=== PATIENT | female | born 1950 | race Caucasian/White ===

== ENCOUNTER 2022-06-17 14:00 | Outpatient (CLI) | payer MEDICARE, SELFPAY ==
[2022-06-17 17:39] LABS: Vitamin D 25 Hydroxy* 21 ng/mL (30-80)
[2022-06-17 17:52] LABS: TSH With Reflex to FT4* 0.979 uIU/mL (0.270-4.200)
[2022-06-17 18:22] LABS: Chloride* 107 mmol/L (96-114)
[2022-06-17 18:23] LABS: Potassium* 4.4 mmol/L (3.6-5.1); Sodium* 142 mmol/L (135-149)
[2022-06-17 18:25] LABS: Cholesterol* 201 mg/dL (90-199); Creatinine* 1.5 mg/dL (0.5-1.5); Estimated Glomerular Filt Rate 36 ml/min
[2022-06-17 18:26] LABS: Blood Urea Nitrogen* 16 mg/dL (7-30); Calcium* 10.3 mg/dL (8.4-10.6); Carbon Dioxide* 26 mmol/L (20-32); Glucose* 93 mg/dL (60-115); HDL Cholesterol* 62 mg/dL (>=50); LDL Cholesterol Calculated 87 mg/dL (<100); Triglycerides* 262 mg/dL (40-149)
== END 2022-06-17 14:01 | disposition home or self-care (01) ==
PROVIDERS: PCP Internal Medicine; Visit Provider Internal Medicine
DX: E03.9 Hypothyroidism, unspecified; E78.5 Hyperlipidemia, unspecified; M81.0 Age-related osteoporosis without current pathological fracture
CPT/HCPCS: 80048; 80061; 82306; 84443

== ENCOUNTER 2022-07-05 15:56 | Outpatient (CLI) | payer MEDICARE, OTHER, SELFPAY ==
[2022-07-06 14:41] LABS: Total Volume 24 Hour Urine 950 ml
[2024-03-07 15:31] LABS: Collection Time Urine 24 Hours; Urine Creatinine mg/24 Hour 1121 mg/Day
== END 2022-07-05 15:57 | disposition home or self-care (01) ==
PROVIDERS: PCP Internal Medicine; Visit Provider Internal Medicine
DX: M81.0 Age-related osteoporosis without current pathological fracture (principal)
CPT/HCPCS: 82570

== ENCOUNTER 2022-09-22 12:45 | Outpatient (RCR) | payer MEDICARE, OTHER, SELFPAY ==
--- NOTE | 2022-08-04 14:07 | PT.OPEX ---
PT [place] Outpatient Eval PT [facility] Outpatient Eval Start: 08/04/22 13:44 Freq: Status: Active Protocol: Document 08/04/22 13:45 ACW (Rec: 08/04/22 14:07 ACW [id number]) E-signed By Sydnee Durán, PT, ATC Physical Therapy Outpatient Evaluation Insurance Information Insurance Name Medicare B Medical Diagnosis chronic neck and right shoulder pain Treating Diagnosis pain and muscle guarding in neck and upper shoulder muscles Referring MD Lutz Subjective Pain Comments Date of Last Physician Visit 06/17/22 Current Work Status Retired Preferred Name Nina Precautions Weight Bearing Status Full Weight Bearing Therapy Limitations/Systems Review Not Limited Assessment Assessment/Impression pt is a 72 yo woman with chronic right neck and shoulder muscle pain. This started the beginning of May when she was cleaning a wall of windows in her condo. She broke it up into 2 days and went slowly, but nonetheless she had increased pain afterward. She also has her sister staying with her who is wheelchair bound and Nina takes her to many appts . This requires her to lift the wheelchair into the car a minimum of 2 times, and often 4 times per day. This aggravates her neck as well. Occasionally she has referred pain up the back of her neck to the top of her head. pt had a fusion on the right side of her neck in 2011. Since this happened until now she has had 4-6 chiropractic appts which helped and when traveling over the holidays she had less pain because she wasn't lifting anything. She has most pain with forward flexion and abduction of her arm. pt rates her pain at 2- /10. She feels it like a deep ache that can run then run down the outside of her upper arm to the back of her wrist. pt has full ROM of her shoulder . Her neck mobility is limited especially in sidebending bilaterally . pt has intense muscle guarding of her right upper trap, levator scap, SCM, suboccipital muscle and moderate guarding of her deltoid and bicep muscles. pt will benefit from skilled PT of MT and TE for stretching and ultimately strengthening of her upper back and arm muscles Plan of Care Rehabilitation Potential Good Physical Therapy Goals 1. pt will be competent and compliant with home exercises 2. in 4 visits pt will be able to flex and abduction her shoulder to > 150 degrees with 2/10 max right neck/ shoulder pain. 3. in 6 visits pt will be able to lift a plate into an upper cupboard 10 times with 2 /10 max right neck and shoulder pain Coordination/Communication With Referral Source Treatment Plan/Direct Interventions Manual Therapy,Therapeutic Exercises Frequency/Duration 1 time per week as needed to achieve goals Patient Will Be Discharged From Therapy Independently Progressing Evaluation Billing Complexity High Certification Information Initial Certification Date 08/04/22 Ending Certification Date 11/01/22 Provider Signature Shows Agreement With POC & Medical Necessity Physician Signature & Date Requested Please Sign/Date Here Physician Comment/Change : Physician NPI Number #
== END 2023-02-03 23:59 | disposition home or self-care (01) ==
PROVIDERS: PCP Internal Medicine; Visit Provider Internal Medicine
DX: M54.2 Cervicalgia (principal); Z51.89 Encounter for other specified aftercare
CPT/HCPCS: 97110; 97140; 97163

== ENCOUNTER 2023-02-09 14:33 | Outpatient (CLI) | payer MEDICARE, OTHER, SELFPAY | END 2023-02-09 14:34 | disposition home or self-care (01) | PROVIDERS: PCP Internal Medicine; Visit Provider Internal Medicine | DX: R55 Syncope and collapse (principal); E03.9 Hypothyroidism, unspecified; E78.5 Hyperlipidemia, unspecified; R73.03 Prediabetes | CPT/HCPCS: 80053; 84443 ==

== ENCOUNTER 2023-04-28 14:15 | Outpatient (REF) | payer MEDICARE, OTHER, SELFPAY | END 2023-04-28 14:16 | disposition home or self-care (01) | LOC: NPINS 14:15 | PROVIDERS: PCP Internal Medicine; Visit Provider Physician Assistant | DX: L27.2 Dermatitis due to ingested food (principal); J30.9 Allergic rhinitis, unspecified | CPT/HCPCS: 86003 ==

== ENCOUNTER 2023-07-06 09:58 | Outpatient (CLI) | payer MEDICARE, SELFPAY | END 2023-07-06 09:59 | disposition home or self-care (01) | LOC: NFLDREF 07-07 14:40 | PROVIDERS: PCP Internal Medicine; Referring Provider Internal Medicine; Visit Provider Internal Medicine | DX: E03.9 Hypothyroidism, unspecified (principal); E78.5 Hyperlipidemia, unspecified; R73.03 Prediabetes; M81.0 Age-related osteoporosis without current pathological fracture | CPT/HCPCS: 80048; 80061; 82306; 82947; 84443 ==

== ENCOUNTER 2023-07-19 08:20 | Outpatient (CLI) | payer MEDICARE, SELFPAY | END 2023-07-19 08:21 | disposition home or self-care (01) | LOC: NFLDREF 07-20 12:49 | PROVIDERS: PCP Internal Medicine; Referring Provider Internal Medicine; Visit Provider Internal Medicine | DX: M81.0 Age-related osteoporosis without current pathological fracture (principal) | CPT/HCPCS: 82570 ==

== ENCOUNTER 2023-08-12 09:45 | Outpatient (RCR) | payer MEDICARE, OTHER, SELFPAY ==
--- NOTE | 2023-07-22 13:32 | URNOTE ---
Received request for prior auth for Zoledronic acid (Reclast) ([id number]). Pt has Medicare. Prior authorization is not required as services are based on medical necessity and follow medicare guidelines.
[2023-08-12 09:43] VITALS: BP 135/97; PULSE 82; RESP 16; TEMP 36.2
[2023-08-12] MEDS: 0.9 % SODIUM CHLORIDE 250 ml IV (10:17)
[2023-08-12] MEDS: SODIUM CHLORIDE 0.9 % (FLUSH) 10 ML SYRINGE IVF (10:17)
== END 2024-02-08 23:59 | disposition home or self-care (01) ==
LOC: CCIC 09:45
PROVIDERS: PCP Internal Medicine; Referring Provider Internal Medicine; Visit Provider Clinical Nurse Specialist
DX: M81.0 Age-related osteoporosis without current pathological fracture (principal)
CPT/HCPCS: 96374; 96376; J3489; J7050

== ENCOUNTER 2023-09-27 12:43 | Outpatient (CLI) | payer MEDICARE, OTHER, SELFPAY ==
--- NOTE | 2023-09-27 13:00 | MM_ITS ---
Patient: KATELIN BENAVIDEZ Facility:?[facility] Patient ID:?[id number] Site Patient ID:?[id number]. Site :?[id number] Study:?XRay-Breast Bilateral 3D screening mammogram w/cad-09/27/2023 1:13:20 PM Ordering Physician:JOSEPH Final Report: BILATERAL SCREENING MAMMOGRAM WITH COMPUTER-AIDED DETECTION AND TOMOSYNTHESIS TECHNIQUE: CC and MLO views were obtained. These mammographic images have been obtained using full-field digital technique. These mammographic images were interpreted with the benefit of computer-aided detection. Breast Tomosynthesis was used in this interpretation. COMPARISON FILM: 11/26/21, 09/29/20, 07/04/19. FINDINGS: There are scattered areas of fibroglandular density. IMPRESSION: There is no radiographic evidence for malignancy. ASSESSMENT: BI-RADS Category 1: Negative RECOMMENDATION: Routine screening mammogram in 1 year. A lay language report of this examination will be provided to the patient. Vadim Hunter M.D. Diagnostic Radiologist [email or web address] DSM/sp R& Transcribed: 3:41 p.m. SP/Dictated by: Vadim Hunter MD @ 09/28/2023 10:32:00 AM Signed by:Marcio Hunter MD @09/28/2023 3:49:48 PM (Electronic Signature)
== END 2023-09-27 12:44 | disposition home or self-care (01) ==
PROVIDERS: PCP Internal Medicine; Visit Provider Internal Medicine
DX: Z12.31 Encounter for screening mammogram for malignant neoplasm of breast (principal)
CPT/HCPCS: 77063; 77067

== ENCOUNTER 2023-10-12 10:30 | Outpatient (RCR) | payer MEDICARE, OTHER, SELFPAY ==
--- NOTE | 2023-08-10 14:35 | PT.OPEX ---
PT [place] Outpatient Eval PT [facility] Outpatient Eval Start: 08/10/23 11:27 Freq: Status: Active Protocol: Document 08/10/23 11:28 MLS (Rec: 08/10/23 14:33 MLS [id number]) E-signed By Taisha Dick DPT Physical Therapy Outpatient Evaluation Insurance Information Recert Due Date 11/07/23 Insurance Name Medicare B Medical Diagnosis M54.2 cervicalgia Treating Diagnosis M54.2 cervicalgia, right sided Referring MD Marisol Lutz MD Subjective Subjective Patient is a 73 year old female who presents to physical therapy with signs and symptoms consistent with neck pain and tightness. She reports that it is worse on the right side. She reports that she had covid in the beginning of July and has a right sore knee possibly from that. She reports that she had ACDF surgery with implant put in in 2020. She had previous PT to work on the muscles on the right side of her neck which helped. She states that she continues to have a lot of soreness and tightness in her neck. She reports that she strained her neck a few years ago making her bed and then later while trying to clean her windows. She reports that her low back has some problems as well. No complaints of numbness or tingling into either arm. She reports that she gets a couple headaches a week. Aggravating factors include: cleaning, reaching, ADLs, sleeping, and exercise. She has been doing somatic exercise, similar to yoga. Alleviating factors include tens unit, ice and heat. Significant past medical history includes degenerative disc disease and osteoporosis. She is getting an infusion on Tuesday to help build bone . She is right handed. Patient would like to be able to use her right neck and arm more through physical therapy sessions. Pain Comments Today: 2/10 on a 0-10 pain scale with 10 = extreme pain At its worst: 6/10 At its best: 1/10 Current Work Status Retired Occupation retired earth mover Objective Other/Pertinent Objective SPINAL ALIGNMENT/POSTURE Forward head Rounded shoulders Kyphosis CERVICAL ROM Flexion: 75% Extension: 25% with pain Right Rotation: 10% with pain Left Rotation: 50% Right side bend: 10% with pain Left Side bend: 50% SHOULDER AROM Grossly tested WNL NECK/SHOULDER MMT: Shoulder shrug: R 4/5 L 4/5 Shoulder flexion: R 4/5 L 4/5 Shoulder abduction: R 4/5 L 4/ 5 Shoulder External Rotation: R 4/5 L 4/5 Shoulder Internal Rotation: R 4/5 L 4/5 Elbow Flexion: R 4/5 L 4/5 Elbow Ext: R 4/5 L 4/5 Headaches: 2x/week SPECIAL TEST -Spurlings Test: negative -Bakody Sign: negative -Cervical distraction test: JOINT MOBILITY/PALPATION Moderate tenderness and tightness noted with palpation of bilateral upper trapezius, rhomboids and scalenes, right side worse TX: Instructed on occipital release using double tennis ball Access Code: [email or web address] URL: [email or web address] [employer]/ Date: 08/10/2023 Prepared by: Taisha Dick Exercises - Seated Scapular Retraction - 1 x daily - 7 x weekly - 3 sets - 10 reps - Seated Cervical Retraction - 1 x daily - 7 x weekly - 3 sets - 10 reps - Seated Cervical Rotation AROM - 1 x daily - 7 x weekly - 3 sets - 10 reps - Seated Cervical Sidebending AROM - 1 x daily - 7 x weekly - 3 sets - 10 reps Functional Test Performed & Score 16/50 0-4 = no disability 5-14 = mild disability 15-24 = moderate disability 25-34 = severe disability >34 = complete disability Assessment Assessment/Impression Pt is a 73 year old female who presents with concerns of neck pain and tightness. Patient also has notable objective findings including limited ROM, tenderness to palpation, and decreased strength which are also likely contributing to the problem. Patient is a good candidate for skilled therapy to target deficits described above. Skilled PT intervention is necessary for use of therapeutic exercise manual therapy, neuromuscular re- education, and therapeutic activity. Functional impairments include difficulty with sleeping, cleaning, reaching, ADLs and exercising. See appropriate sections of PT eval for complete list of goals and POC. D/C plan and criteria is for pt to achieve the goals as listed below or until max rehab potential is met. Pt was agreeable with plan of care and goals established. Primary Functional Limitations cleaning reaching exercising ADLs sleeping Plan of Care Rehabilitation Potential Good Physical Therapy Goals Within 10-12 weeks: 1.Pt will demonstrate independence in performance of home exercise program with the use of video and/or handouts in order to optimize functional mobility and reduce risk for re-injury. 2.Pt will demonstrate consistent HEP compliance to ensure progress in reaching established goals during course of care. 3.Patient will be able to clean for up to one hour without pain. 4.Patient will report pain levels <2/10 with all activities in order to improve functional mobility at home, work and during functional leisure activities. 5.Patient is able to sleep without waking more than one time due to pain in a 6-8 hour time frame. 6.Patient will have reports of <1 headache per week. 7.Patient will be able to bend and lift household items from the floor to shoulder height to perform ADLs without pain. 8.Pt will exhibit 5 pt improvement in Neck disability Index measure to demonstrate functional improvement and progress towards goals Coordination/Communication With Referral Source Treatment Plan/Direct Interventions Joint Mobilization,Manual Therapy,Therapeutic Activities ,Therapeutic Exercises Patient Will Be Discharged From Therapy Independently Progressing Evaluation Billing Untimed Code Treatment Minutes 30 Complexity Low Certification Information Physician Comment/Change : Physician NPI Number #
== END 2023-12-08 13:17 | disposition home or self-care (01) ==
PROVIDERS: PCP Internal Medicine; Visit Provider Internal Medicine
DX: M54.2 Cervicalgia (principal); G89.29 Other chronic pain; Z51.89 Encounter for other specified aftercare
CPT/HCPCS: 97110; 97140; 97161

== ENCOUNTER 2023-12-29 13:15 | Emergency (ER) | payer MEDICARE, OTHER, SELFPAY ==
[2023-12-29 13:30] VITALS: BP 119/69; PULSE 92; RESP 18; TEMP 36.6; O2SAT 92; BMI 28.3
--- NOTE | 2023-12-29 13:37 | CRLHL7_ITS ---
For Patients: As a result of the Cures Act, medical imaging exams and procedure reports are released immediately into your electronic medical record. You may view this report before your referring provider. If you have questions, please contact your health care provider. INDICATION: Back pain TECHNIQUE: Lumbar spine 2 view COMPARISON: None FINDINGS: Bones: No evidence of fracture. Joints: Mild disc space narrowing at the L4-5 level. Soft tissues: Right upper quadrant surgical clips. IMPRESSION: Mild degenerative disc disease L4-5. Dictated by Syd Corado MD @ 12/29/2023 2:26:42 PM (Electronically Signed)
--- NOTE | 2023-12-29 13:41 | ED.BACK ---
HPI - Back Pain/Injury General Chief Complaint: Back Injury/Pain Stated Complaint: R ankle/ L lower back pain-PCP ref poss DVT Time Seen by Provider: 12/29/23 13:16 History of Present Illness HPI Narrative: Patient is a 73-year-old woman who is undergoing physical therapy for knee pain who comes in today with very tight muscles in her low back which is impeding her flexion-extension. She has no radicular symptoms she has no bowel or bladder symptoms the pain is just to the right of the midline in the mid lumbar region. She has no difficulty with his therapy and states that the pain is been present since last night. She is not taking any medication for the pain and is very concerned as she is going to [place] soon. Related Data Home Medications ?Medication ?Instructions ?Recorded ?Confirmed albuterol sulfate 90 mcg/actuation 2 puff inhalation Q4H PRN 06/17/22 11/09/23 aerosol inhaler dicyclomine 10 mg capsule 10 mg PO ONCE PRN 06/17/22 11/09/23 diclofenac sodium 1 % topical gel 2 g topical QID PRN 07/12/23 11/09/23 (Voltaren Arthritis Pain) fodzyme PO DAILY PRN 10/10/23 11/09/23 Previous Rx's ?Medication ?Instructions ?Recorded levothyroxine 75 mcg tablet 75 mcg PO DAILY #90 tabs 07/12/23 pitavastatin magnesium 2 mg tablet 2 mg PO QDAY #90 tabs 07/12/23 (Zypitamag) zolpidem 5 mg tablet 5 mg PO QHS PRN sleep #30 tabs 10/06/23 levocetirizine 5 mg tablet 5 mg PO BID #180 tabs 10/31/23 Allergies Allergy/AdvReac Type Severity Reaction Status Date / Time cat dander Allergy Intermediate Verified 11/09/23 08:37 dog dander Allergy Intermediate Verified 11/09/23 08:37 house dust Allergy Intermediate Verified 11/09/23 08:37 mold Allergy Intermediate Verified 11/09/23 08:37 pollen extracts Allergy Intermediate Verified 11/09/23 08:37 nickel Allergy Unknown Verified 11/09/23 08:37 poison sumac extract Allergy Verified 11/09/23 08:37 Penicillins AdvReac Severe Hives Verified 11/09/23 08:37 goat dander Allergy Intermediate Uncoded 11/09/23 08:37 Pneumococcal Vaccines Allergy Intermediate Rash Uncoded 11/09/23 08:37 herpes zoster vaccine Allergy Mild Hives Uncoded 11/09/23 08:37 Review of Systems Status of ROS: Reports: 10 or more systems reviewed and unremarkable except as noted in History and below [facility] Medical History History of deep vein thrombosis (DVT) of lower extremity (2017) ?Z86.718 - Personal history of other venous thrombosis and embolism (ICD-10) History of nephrolithiasis ?Z87.442 - Personal history of urinary calculi (ICD-10) History of asthma ?Z87.09 - Personal history of other diseases of the respiratory system (ICD-10) Surgical History S/P foot surgery, left ?Z98.890 - Other specified postprocedural states (ICD-10) History of cataract extraction ?Z98.49 - Cataract extraction status, unspecified eye (ICD-10) History of spinal fusion ?Z98.1 - Arthrodesis status (ICD-10) History of appendectomy ?Z90.49 - Acquired absence of other specified parts of digestive tract (ICD-10) History of cholecystectomy ?Z90.49 - Acquired absence of other specified parts of digestive tract (ICD-10) History of tonsillectomy ?Z90.89 - Acquired absence of other organs (ICD-10) Family History (Updated 11/09/23 @ 08:41 by Gracy Tinoco ~ [facility], [facility]) Father Prostate cancer Sister Endometrial cancer Social History Narrative: 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 What is your current living situation?: I presently have a place to live Problems where you live: pests, such as bugs, ants, or mice In the past 12 months, utilities in danger of being shut off: no In past 12 months, lack of transportation kept you from medical appts, meetings, work, or getting things needed for daily living: no In the past 12 mos, have been you worried that your food would run out before you had money to buy more?: never true In the past 12 mos, the food you bought just didn't last and you didn't have money to buy more?: never true Smoking Status: Former smoker What tobacco products do you use: cigarettes Smoking quit date/years: >15 years ago Do you use any of these nicotine containing products: None Second hand tobacco smoke exposure: No How often does anyone, including family, friends and others, physically hurt you: decline to answer How often does anyone, including family, friends and others, insult or talk down to you: decline to answer How often does anyone, including family, friends and others, threaten you with harm: decline to answer How often does anyone, including family, friends and others, scream or curse at you: decline to answer Little interest or pleasure in doing things: not at all Feeling down, depressed, or hopeless: not at all Exam Narrative: Exam Narrative: EXAM GENERAL: Patient appears comfortable and well. EYES: No scleral icterus. ENT: Tympanic membranes and oropharynx normal. THYROID: no thyroid nodules or thyromegaly. LYMPH: No supraclavicular or cervical lymphadenopathy. SKIN: Visible skin seen during exam normal or with benign process only. EXT: No dependent lower extremity pedal edema. HEART: Regular rate and rhythm with no murmurs, rubs, or gallops. LUNGS: Clear to auscultation bilaterally with no crackles or wheezes. ABD: Soft, non tender, non distended. PSYCH: Good eye contact, speech is not pressured. Musculoskeletal exam of the lumbar spine is normal. Const: Vital Signs, click to edit/add: Vital Signs - 24 hr 12/29/23 13:30 Temperature 97.8 F Pulse Rate [Pulse Oximeter] 92 Respiratory Rate 18 Blood Pressure [Ri ght Upper Arm] 119/69 Pulse Oximetry 92 Oxygen Delivery Me thod Room Air Course Course ED Course: Patient seen and examined. Vital Signs Vital signs: Initial Vital Signs Temperature 97.8 F 12/29/23 13:30 Temperature Source Temporal Artery Scan 12/29/23 13:30 Pulse Rate 92 12/29/23 13:30 Respiratory Rate 18 12/29/23 13:30 Blood Pressure 119/69 12/29/23 13:30 Blood Pressure Mean 85 12/29/23 13:30 Blood Pressure Position Supine 12/29/23 13:30 Pulse Oximetry 92 12/29/23 13:30 Oxygen Delivery Method Room Air 12/29/23 13:30 Vital Signs Temperature 97.8 F 12/29/23 13:30 Pulse Rate 92 12/29/23 13:30 Respiratory Rate 18 12/29/23 13:30 Blood Pressure 119/69 12/29/23 13:30 Pulse Oximetry 92 12/29/23 13:30 Oxygen Delivery Method Room Air 12/29/23 13:30 Temperature 97.8 F 12/29/23 13:30 Pulse Rate 92 12/29/23 13:30 Respiratory Rate 18 12/29/23 13:30 Blood Pressure 119/69 12/29/23 13:30 Pulse Oximetry 92 12/29/23 13:30 Oxygen Delivery Method Room Air 12/29/23 13:30 MDM - Back Pain/Injury MDM Narrative Medical decision making narrative: Patient is a 73-year-old woman comes in today with back tightness. She has a normal exam and normal vital signs. Her x-ray of her lumbar spine shows mild osteoarthritis upon my review. This time I did recommend ice ibuprofen Tylenol advancement of her activity as tolerated with possible involvement of her physical therapist. Differential diagnosis includes but not limited to diskitis osteoarthritis of the lumbar spine spinal stenosis compression fracture ruptured disc. Discharge Plan Discharge Clinical Impression: Low back pain Patient Disposition: Home, Self-Care Condition: Stable Instructions: Acute Low Back Pain (ED) Additional Instructions: Tylenol 650 mg every 6 hours as needed Motrin 600 mg every 6 hours as needed Ice Follow-up with your doctor as needed. Activity Level: No Restrictions Discharge Diet: Regular Prescriptions: No Action diclofenac sodium [Voltaren Arthritis Pain] 1 % gel 2 g topical QID PRN Rx Instructions: apply to single elbow, wrist or hand; for hand includes palm/fingers/back of hand levothyroxine 75 mcg tablet 75 mcg PO DAILY Qty: 90 3RF Zypitamag 2 mg tablet 2 mg PO QDAY Qty: 90 3RF albuterol sulfate 90 mcg/actuation HFA aerosol inhaler 2 puff inhalation Q4H PRN dicyclomine 10 mg capsule 10 mg PO ONCE PRN fodzyme PO DAILY PRN zolpidem 5 mg tablet 5 mg PO QHS PRN (Reason: sleep) Qty: 30 0RF levocetirizine 5 mg tablet 5 mg PO BID Qty: 180 3RF Follow Up/Referrals: Marisol Lutz MD [Primary Care Provider] - Stand Alone Forms: [place] Info Instructions
== END 2023-12-29 14:18 | disposition home or self-care (01) ==
PROVIDERS: Emergency Provider Internal Medicine; PCP Internal Medicine
DX: M54.50 Low back pain, unspecified (principal)
CPT/HCPCS: 72100; 99283

== ENCOUNTER 2024-01-17 13:06 | Emergency (ER) | payer MEDICARE, OTHER, SELFPAY ==
[2024-01-17 13:10] VITALS: BP 115/73; PULSE 90; RESP 18; TEMP 36.7; O2SAT 94; BMI 28.6
--- NOTE | 2024-01-17 13:37 | CRLHL7_ITS ---
For Patients: As a result of the Century Cures Act, medical imaging exams and procedure reports are released immediately into your electronic medical record. You may view this report before your referring provider. If you have questions, please contact your health care provider. INDICATION: Leg pain and swelling. TECHNIQUE: Ultrasound venous duplex lower right extremity. Compression venous exam was performed using albert-scale, color Doppler, and spectral Doppler analysis. COMPARISON: None. FINDINGS: Deep veins: Acute DVT involving the femoral vein, popliteal vein, posterior tibial veins, and peroneal veins. Superficial veins: Greater saphenous vein is fully compressible. No popliteal cyst. IMPRESSION: Acute DVT involving the femoral vein, popliteal vein, posterior tibial veins, and peroneal veins. Awaiting callback. Dictated by Nigel Greenwood MD @ 01/17/2024 2:12:20 PM (Electronically Signed)
--- NOTE | 2024-01-17 13:42 | ED.GENADULT ---
HPI - General Adult General Chief complaint: Lower Extremity Swelling Stated complaint: rt leg swollen Time Seen by Provider: 01/17/24 13:11 History of Present Illness HPI narrative: This 73-year-old female comes in with report of pain and swelling in her right lower extremity. She states that there was no injury event or strenuous activity. She states that this began a couple weeks ago and has worsened since then. She does have a history of deep venous thrombosis an is not currently taking any anticoagulants. She does not report any chest pain or shortness of breath. She arrives here with normal vital signs. She does wear compression stockings bilaterally. Related Data Home Medications ?Medication ?Instructions ?Recorded ?Confirmed albuterol sulfate 90 mcg/actuation 2 puff inhalation Q4H PRN 06/17/22 01/17/24 aerosol inhaler dicyclomine 10 mg capsule 10 mg PO ONCE PRN 06/17/22 01/17/24 diclofenac sodium 1 % topical gel 2 g topical QID PRN 07/12/23 01/17/24 (Voltaren Arthritis Pain) Previous Rx's ?Medication ?Instructions ?Recorded levothyroxine 75 mcg tablet 75 mcg PO DAILY #90 tabs 07/12/23 zolpidem 5 mg tablet 5 mg PO QHS PRN sleep #30 tabs 10/06/23 levocetirizine 5 mg tablet 5 mg PO BID #180 tabs 10/31/23 apixaban 5 mg (74 tabs) tablets in See Rx Instructions PO .COMPLEX 01/17/24 a dose pack (Eliquis DVT-PE Treat #74 ea 30D Start) tramadol 50 mg tablet 50 mg PO Q6H PRN pain #20 tabs 01/17/24 Allergies Allergy/AdvReac Type Severity Reaction Status Date / Time cat dander Allergy Intermediate Verified 01/17/24 13:16 dog dander Allergy Intermediate Verified 01/17/24 13:16 house dust Allergy Intermediate Verified 01/17/24 13:16 mold Allergy Intermediate Verified 01/17/24 13:16 pollen extracts Allergy Intermediate Verified 01/17/24 13:16 nickel Allergy Unknown Verified 01/17/24 13:16 poison sumac extract Allergy Verified 01/17/24 13:16 Penicillins AdvReac Severe Hives Verified 01/17/24 13:16 goat dander Allergy Intermediate Uncoded 11/09/23 08:37 Pneumococcal Vaccines Allergy Intermediate Rash Uncoded 11/09/23 08:37 herpes zoster vaccine Allergy Mild Hives Uncoded 11/09/23 08:37 Review of Systems Status of ROS: Reports: 10 or more systems reviewed and unremarkable except as noted in History and below Narrative: Constitutional: No fevers, no weight gain or loss. Eyes: No discharge. No vision changes. HENT: No congestion, no sore throat, no ear pain. Cardiovascular: No chest pain, no palpitations. Respiratory: No shortness of breath, no wheezes, no cough. Gastrointestinal: No abdominal pain, no vomiting, no diarrhea. Genitourinary: No dysuria, no hematuria. Musculoskeletal: Normal range of motion. Right leg pain and swelling. Skin: No rashes, no pruritis. Neurological: No dizziness, weakness, sensory change, speech change. Endo/Heme/Allergies: No bruising or bleeding. No polydipsia. Pysch: no suicidality, no anxiety, no insomnia. All other systems reviewed and are negative. [facility] Medical History History of deep vein thrombosis (DVT) of lower extremity (2017) ?Z86.718 - Personal history of other venous thrombosis and embolism (ICD-10) History of nephrolithiasis ?Z87.442 - Personal history of urinary calculi (ICD-10) History of asthma ?Z87.09 - Personal history of other diseases of the respiratory system (ICD-10) Surgical History S/P foot surgery, left ?Z98.890 - Other specified postprocedural states (ICD-10) History of cataract extraction ?Z98.49 - Cataract extraction status, unspecified eye (ICD-10) History of spinal fusion ?Z98.1 - Arthrodesis status (ICD-10) History of appendectomy ?Z90.49 - Acquired absence of other specified parts of digestive tract (ICD-10) History of cholecystectomy ?Z90.49 - Acquired absence of other specified parts of digestive tract (ICD-10) History of tonsillectomy ?Z90.89 - Acquired absence of other organs (ICD-10) Family History (Updated 11/09/23 @ 08:41 by Gracy Tinoco ~ [facility], [facility]) Father Prostate cancer Sister Endometrial cancer Social History Narrative: 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 What is your current living situation?: I presently have a place to live Problems where you live: pests, such as bugs, ants, or mice In the past 12 months, utilities in danger of being shut off: no In past 12 months, lack of transportation kept you from medical appts, meetings, work, or getting things needed for daily living: no In the past 12 mos, have been you worried that your food would run out before you had money to buy more?: never true In the past 12 mos, the food you bought just didn't last and you didn't have money to buy more?: never true Smoking Status: Former smoker What tobacco products do you use: cigarettes Smoking quit date/years: >15 years ago Do you use any of these nicotine containing products: None Second hand tobacco smoke exposure: No How often do you have a drink containing alcohol: monthly or less How often do you have six or more drinks on one occasion: Never AUDIT-C Alcohol total score: 1 Non-prescribed substance use: denies use How often does anyone, including family, friends and others, physically hurt you: decline to answer How often does anyone, including family, friends and others, insult or talk down to you: decline to answer How often does anyone, including family, friends and others, threaten you with harm: decline to answer How often does anyone, including family, friends and others, scream or curse at you: decline to answer Little interest or pleasure in doing things: not at all Feeling down, depressed, or hopeless: not at all Exam Narrative: Exam Narrative: Constitutional: Well-developed, well-nourished, no acute distress. HEENT: Normocephalic, atraumatic. Neck: Normal range of motion. Nontender. Supple. Heart: Regular. No murmurs. Normal rate. Intact distal pulses. Lungs: Clear to auscultation. No chest discomfort. No wheezes, rhonchi, or rales. Abdomen: Normal bowel sounds. Nontender. No rebound tenderness. Genitalia: Deferred. Back: No midline tenderness. Normal range of motion. Extremities: Normal range of motion. No injury. Right lower extremity does have increased size compared to the left in the calf region. Skin: Intact. No rash. Warm. No erythema or pallor. Neurologic: No altered sensation. No weakness. Alert and oriented. Psychiatric: No suicidality. No anxiety or depression. No insomnia. Nursing notes and vitals signs are reviewed. Const: Vital Signs, click to edit/add: Vital Signs - 24 hr 01/17/24 13:10 Temperature 98.1 F Pulse Rate [Pulse Oximeter] 90 Respiratory Rate 18 Blood Pressure [Ri t Upper Arm] 115/73 Pulse Oximetry 94 Oxygen Delivery Me thod Room Air Course Vital Signs Vital signs: Initial Vital Signs Temperature 98.1 F 01/17/24 13:10 Temperature Source Temporal Artery Scan 01/17/24 13:10 Pulse Rate 90 01/17/24 13:10 Pulse Rhythm Regularly Irregular 01/17/24 13:10 Pulse Strength 3+ Normal 01/17/24 13:10 Respiratory Rate 18 01/17/24 13:10 Blood Pressure 115/73 01/17/24 13:10 Blood Pressure Mean 87 01/17/24 13:10 Blood Pressure Position Sitting 01/17/24 13:10 Pulse Oximetry 94 01/17/24 13:10 Oxygen Delivery Method Room Air 01/17/24 13:10 Vital Signs Temperature 98.1 F 01/17/24 13:10 Pulse Rate 90 01/17/24 13:10 Respiratory Rate 18 01/17/24 13:10 Blood Pressure 115/73 01/17/24 13:10 Pulse Oximetry 94 01/17/24 13:10 Oxygen Delivery Method Room Air 01/17/24 13:10 Temperature 98.1 F 01/17/24 13:10 Pulse Rate 90 01/17/24 13:10 Respiratory Rate 18 01/17/24 13:10 Blood Pressure 115/73 01/17/24 13:10 Pulse Oximetry 94 01/17/24 13:10 Oxygen Delivery Method Room Air 01/17/24 13:10 Medical Decision Making MDM Narrative Medical decision making narrative: This patient comes in with swelling and pain in her right leg and has a history of previous deep venous thrombosis that occurred about 7 years ago. She discontinued anticoagulant treatment after several months at that time. She does not report any injury event her other triggers that would cause these symptoms. An ultrasound of the right lower extremity is obtained and does show evidence of extensive clot ranging from her mid calf up to near her groin. The patient does not have any abnormal vital signs and does not report any chest pain or shortness of breath. She states that she was on Eliquis before. She did receive a 10 mg dose at this visit and a prescription for a starter pack. She is advised to follow-up with her primary physician for ongoing management. She should return if worsening symptoms occur. Imaging Data Venous US: Radiologist's impression: Acute DVT involving the femoral vein, popliteal vein, posterior tibial veins, and peroneal veins. Discharge Plan Discharge Clinical Impression: Deep venous thrombosis Patient Disposition: Home, Self-Care Condition: Unchanged Additional Instructions: Take medication as prescribed. Follow up with primary physician for ongoing management. Return if worsening symptoms occur. Prescriptions: New Eliquis DVT-PE Treat 30D Start 5 mg (74 tabs) tablets,dose pack See Rx Instructions PO .COMPLEX Qty: 74 0RF Rx Instructions: orally per package directions tramadol 50 mg tablet 50 mg PO Q6H PRN (Reason: pain) Qty: 20 0RF No Action diclofenac sodium [Voltaren Arthritis Pain] 1 % gel 2 g topical QID PRN Rx Instructions: apply to single elbow, wrist or hand; for hand includes palm/fingers/back of hand levothyroxine 75 mcg tablet 75 mcg PO DAILY Qty: 90 3RF albuterol sulfate 90 mcg/actuation HFA aerosol inhaler 2 puff inhalation Q4H PRN dicyclomine 10 mg capsule 10 mg PO ONCE PRN zolpidem 5 mg tablet 5 mg PO QHS PRN (Reason: sleep) Qty: 30 0RF levocetirizine 5 mg tablet 5 mg PO BID Qty: 180 3RF Follow Up/Referrals: Marisol Lutz MD [Primary Care Provider] - Stand Alone Forms: [employer] Info Instructions
--- OUTSIDE RECORDS SUMMARY | 2024-01-17 13:50 | XMS_ITS | Clinical Summary ---
Author Organization [facility] Address [address] [address] Care Team Providers Care Baby Stroller Rental Clerk Name Role Phone Unavailable Primary Care Provider Unavailabl e Source Comments You are receiving this document as you are listed as the primary care provider,follow-up provider, or the patient has been referred to you for consultation.This is in compliance with the Medicare andMedicaid EHR Incentive Program,which states Providers who transition their patient to another setting of careor provider of care or refers their patient to another provider of care shouldprovide summary care record for each transition of care or referral. [facility] Allergies Active Allergy Reactions Criticality Noted Date Comments Cottonseed Oil Gastrointestinal 07/20/2021 Dust Respiratory Distress High 07/20/2021 Grass Pollen(K-O-R-T-Swt Rudy) Respiratory Distress High 07/20/2021 Milk-Related Compounds Rash 07/20/2021 Mixed Ragweed Respiratory Distress High 07/20/2021 Molds & Smuts Headache,Respiratory Distress High 09/2021 Other Hives High 07/20/2021 Penicillins Hives High 07/20/2021 Zoster Vac Recomb Adjuvanted Hives,Itching,Rash High 07/20/2021 Medications Medication Sig Dispensed Refills Start Date End Date Status Albuterol Sulfate (PROAIR DIGIHALER IN) Inhale 2 Puffs as needed. Active Dicyclomine HCl (AKA BENTYL) 10 MG/ML injection Inject 10 mg intramuscularly as needed. Active levothyroxine (SYNTHROID) 88 MCG tablet Take 88 mcg by mouth daily. Active Pitavastatin Calcium (LIVALO) 2 MG TABS Take 2 mg by mouth daily. Active Social History Tobacco Use Types Packs/Day Years Used Date Smoking Tobacco: Never Assessed Sex and Gender Information Value Date Recorded Sex Assigned at Not on file Gender Identity Not on file Sexual Orientation Not on file Plan of Treatment Health Maintenance Due Date Last Done Comments Colon Cancer Screening Plan Due 1950 Hep C Screening (Preventive Services) 1950 Medicare Annual Wellness Visit 1950 Mammogram 1950 DTaP/Tdap/Td (1 - Tdap) 1967 Dexa 2013 Pneumococcal 65+ Yrs (2 - PCV) 03/09/2019 03/09/2018 COVID-19 Vaccine (4 - season) 2023 04/10/2021, 09/30/2020, 09/09/2020 Influenza (Season Ended) 2024 021, 04/10/2020, 05/02/2019, Additional history exists MCV4 Aged Out 07/16/2004 No longer eligi ble based on patient's age to complete this topic IPV (Polio) Aged Out 08/23/2017 No longer eligi ble based on patient's age to complete this topic Zoster/Shingles Completed 07/15/2021, 01/13/2021 HepA Aged Out No longer eligi ble based on patient's age to complete this topic HepB Aged Out No longer eligi ble based on patient's age to complete this topic Hib Aged Out No longer eligi ble based on patient's age to complete this topic Guarantor Name Account Type Relation to Patient Date of Phone Billing Address Nina Mix Personal/Family Self 1950 [address] [place] [address]
--- OUTSIDE RECORDS SUMMARY | 2024-01-17 13:51 | XMS_ITS | Clinical Summary ---
Author Organization [facility] Address [place], [place] [address] Care Team Providers Care Stone Polisher Hand Name Role Phone Pcp, No Primary Care Provider Unavailabl e Allergies Active Allergy Reactions Criticality Noted Date Comments Allergenic Ext-Mixed Ragweed Respiratory Distress High 07/20/2021 House Dust Respiratory Distress High 07/20/2021 Mold Headache,Respiratory Distress High 07/20/2021 Penicillins Hives High 07/20/2021 Unlisted Allergen (Include Detail In Comments) Respiratory Distress,Hives,Rash,Itchin g High 01/06/2018 Medications Medication Sig Dispensed Refills Start Date End Date Status Livalo 1 mg tab 11/02/2021 Active levothyroxine (SYNTHROID) 75 mcg tablet Take 75 mcg by mouth once daily. 10/01/2021 Active levocetirizine (XYZAL) 5 mg tab tablet Take 5 mg by mouth once daily. 10/01/2021 Active dicyclomine (BENTYL) 10 mg capsule Take 10 mg by mouth. 06/01/2021 Active Social History Tobacco Use Types Packs/Day Years Used Date Smoking Tobacco: Never Assessed Sex and Gender Information Value Date Recorded Sex Assigned at Not on file Gender Identity Not on file Sexual Orientation Not on file Last Filed Vital Signs Vital Sign Reading Time Taken Comments Blood Pressure 111/78 11/03/2021 2:18 PM CDT Pulse 93 11/03/2021 2:18 PM CDT Temperature - - Respiratory Rate - - Oxygen Saturation 96% 11/03/2021 2:18 PM CDT Inhaled Oxygen Concentration - - Weight 78 kg (172 lb) 11/03/2021 2:18 PM CDT Height - - Body Mass Index - - Plan of Treatment Health Maintenance Due Date Last Done Comments Tdap 1959 Depression screening for age 12+ 1960 BMI (ht and wt on same day) for age 18+ 1966 Hepatitis C screening for ag e 18-79 1966 Tetanus booster 1968 Colonoscopy through age 75 1993 Lipids for age 45-75 1993 Zoster (shingles) series for age 50+ (1 of 2) 1998 DEXA/DXA scan for age 65+ 2013 Medicare Wellness for age 65+ 2013 Pneumococcal series for age 65+ (1 of 1 - PCV) 2013 COVID-19 vaccine series (2022- season) 2023 10/16/2021, 04/10/2021, 09/30/2020, Additional history exists Influenza for age 65+ 03/18/2024 Care Teams Stone Polisher Hand Relationship Specialty Start Date End Date Pcp, No . PCP - General 11/03/21
== END 2024-01-17 14:49 | disposition home or self-care (01) ==
PROVIDERS: Emergency Provider Emergency Medicine Emergency Medical Services; PCP Internal Medicine
DX: I82.401 Acute embolism and thrombosis of unspecified deep veins of right lower extremity (principal)
CPT/HCPCS: 93971; 99284

== ENCOUNTER 2024-02-14 13:00 | Outpatient (RCR) | payer MEDICARE, OTHER, SELFPAY ==
--- NOTE | 2023-12-01 15:17 | PT.OPEX ---
PT [place] Outpatient Eval PT [facility] Outpatient Eval Start: 12/01/23 11:07 Freq: Status: Active Protocol: Document 12/01/23 11:10 MLS (Rec: 12/01/23 15:15 MLS [id number]) E-signed By Taisha Dick DPT Physical Therapy Outpatient Evaluation Insurance Information Recert Due Date 02/28/24 Insurance Name Medicare B Medical Diagnosis M17.11 Unilateral primary OA, right knee Treating Diagnosis Right knee pain and weakness Referring MD Blaine Mast MD Subjective Subjective Patient is a 73 year old female who presents to physical therapy with signs and symptoms consistent with right knee pain secondary to OA. She states that she is going to [place] in February and wants her knee to feel better. She states that she has had an xray which showed showed close to bone and bone. She states that she thinks this is caused from when she had covid. She reports that the pain started in July. No complaints of numbness of tingling into her lower extremity. She states that when it hurts, it is a dull ache throughout the joint. She states that she is doing a somatic class one time per week. Aggravating factors include: bending, stairs, bad weather. Alleviating factors include: knee sleeve (only wears occasionally when does a lot of walking) Significant past medical history includes arthritis and osteoporosis. Patient would like to have less pain in her knee through physical therapy sessions. Pain Comments Today: 3/10 on a 0-10 pain scale with 10 = extreme pain At its worst: 4/10 At its best: 1/10 Current Work Status Retired Objective Other/Pertinent Objective GAIT/FUNCTIONAL MOBILITY Single leg stance: 15 seconds no increase in pain Squat: with pain KNEE ROM Left: Grossly tested WNL Right: Extension/Flexion: 0-105 (pain with extension) HIP ROM Grossly tested WNL B LLE MMT: Hip flexion: R 4-/5 L 4/5 Hip abduction: R 4-/5 L 4/5 Hip extension: R 4/5 L 4/5 Knee flexion: R 4/5 L 4/5 Knee extension: R 4/5 L 4/5 SPECIAL TEST -Anterior drawer: negative -Posterior Drawer: negative -Valgus Test: negative for pain -Varus Test: negative for pain -Gena test: negative -Patellofemoral Grind Test: positive for pain JOINT MOBILITY/PALPATION/JOINT LINE TENDERNESS No tenderness noted to medial or lateral joint lines with palpation today TX: Access Code: [email or web address] URL: [email or web address]. [employer]/ Date: 12/01/2023 Prepared by: Taisha Dick Exercises - Supine Quadricep Sets - 1 x daily - 7 x weekly - 3 sets - 10 reps - Supine Active Straight Leg Raise - 1 x daily - 7 x weekly - 3 sets - 10 reps - Supine Heel Slide - 1 x daily - 7 x weekly - 3 sets - 10 reps - Supine Bridge - 1 x daily - 7 x weekly - 3 sets - 10 reps Functional Test Performed & Score 30/80 A score increase of 6 points shows a significant improvement in lower extremity function. Assessment Assessment/Impression Pt is a 73 year old who presents with concerns of right knee pain secondary to OA. Patient also has notable objective findings including limited range of motion and decreased strength which are also likely contributing to the problem. Patient is a good candidate for skilled therapy to target deficits described above. Skilled PT intervention is necessary for use of therapeutic exercise manual therapy, neuromuscular re- education, gait training, and therapeutic activity. Functional impairments include difficulty with: walking, standing for prolonged time, sleeping, exercising and ADLs. See appropriate sections of PT eval for complete list of goals and POC. D/C plan and criteria is for pt to achieve the goals as listed below or until max rehab potential is met. Pt was agreeable with plan of care and goals established. Primary Functional Limitations standing walking exercising ADLs sleeping Plan of Care Rehabilitation Potential Good Physical Therapy Goals Within 10-12 weeks: 1.Pt will demonstrate independence in performance of home exercise program with the use of video and/or handouts in order to optimize functional mobility and reduce risk for re-injury. 2.Pt will demonstrate consistent HEP compliance to ensure progress in reaching established goals during course of care. 3.Patient will be able to stand for up to 30 minutes without pain to allow for grocery shopping. 4.Patient will report pain levels <2/10 with all activities in order to improve functional mobility at home, work and during functional leisure activities. 5.Patient is able to sleep without waking more than one time due to pain in a 6-8 hour time frame. 6.Patient will be able to walk up to one mile without pain. 7.Pt will be able to ascend/ descend 1 flight of stairs in order to perform ADLs pain free. 8.Pt will exhibit 6 point improvement in Lower Extremity Functional Scale to demonstrate functional improvement and progress towards goals Coordination/Communication With Referral Source Treatment Plan/Direct Interventions Joint Mobilization,Manual Therapy,Therapeutic Activities ,Therapeutic Exercises, Ultrasound Patient Will Be Discharged From Therapy Independently Progressing Evaluation Billing Untimed Code Treatment Minutes 30 Complexity Low Certification Information Physician Comment/Change : Physician NPI Number #
== END 2024-02-20 09:19 | disposition home or self-care (01) ==
PROVIDERS: PCP Internal Medicine; Visit Provider Orthopaedic Surgery
DX: M17.11 Unilateral primary osteoarthritis, right knee (principal); M25.561 Pain in right knee; R53.1 Weakness; Z51.89 Encounter for other specified aftercare
CPT/HCPCS: 97110; 97140; 97161

== ENCOUNTER 2024-08-03 09:50 | Outpatient (CLI) | payer MEDICARE, OTHER, SELFPAY | END 2024-08-03 09:51 | disposition home or self-care (01) | LOC: NFLDREF 08-06 02:18 | PROVIDERS: PCP Internal Medicine; Referring Provider Internal Medicine; Visit Provider Internal Medicine | DX: E78.5 Hyperlipidemia, unspecified (principal); R73.03 Prediabetes; M81.0 Age-related osteoporosis without current pathological fracture; E03.9 Hypothyroidism, unspecified | CPT/HCPCS: 80048; 80061; 82306; 82947; 84443 ==

== ENCOUNTER 2024-08-10 07:59 | Outpatient (CLI) | payer MEDICARE, OTHER, SELFPAY | END 2024-08-10 08:00 | disposition home or self-care (01) | LOC: NFLDREF 08-19 23:41 | PROVIDERS: PCP Internal Medicine; Referring Provider Internal Medicine; Visit Provider Internal Medicine | DX: M81.0 Age-related osteoporosis without current pathological fracture (principal) | CPT/HCPCS: 82570 ==

== ENCOUNTER 2024-09-03 14:07 | Emergency (ER) | payer MEDICARE, OTHER, SELFPAY ==
--- OUTSIDE RECORDS SUMMARY | 2024-09-03 14:09 | XMS_ITS | Clinical Summary ---
Author Organization [facility] Address [address] [place] [address] Care Team Providers Care Bowling Ball Engraver Name Role Phone None Reported, Pcp Primary Care Provider Unavail able Source Comments Patient records contain information from all sites at [facility]. For routine questions regarding patient records, call [phone] during business hours, M-F 8:00 AM - 5:00 PM Central Time. Record requests for emergency care only can be directed to [phone] at any time.[facility] Immunizations Immunization Administration Dates Next Due Influenza, Seasonal, Injectable 07/07/2004 MPSV4 07/16/2004 Social History Tobacco Use Types Packs/Day Years Used Date Smoking Tobacco: Never Assessed Humiliation, Afraid, Rape, and Kick questionnair e Answer Date Recorded Within the last year, have y ou been afraid of your partner or ex-partner? No 03/10/2023 Within the last year, have y ou been humiliated or emotionally abused in other ways by your partner or ex-partner? No Within the last year, have y ou been kicked, hit, slapped, or otherwise physically hurt by your partner or ex-partner? No 03/10/2023 Within the last year, have y ou been raped or forced to have any kind of sexual activity by your partner or ex-partner? No 03/10/2023 Overall Financial Resource Strain (CARDIA) Answe r Date Recorded How hard is it for you to pa y for the very basics like food, housing, medical care, and heating? Not hard at all 03/10/2023 Exercise Vital Sign Answer Date Recorde d On average, how many days pe r week do you engage in moderate to strenuous exercise (like a brisk walk)? 2 days 03/10/2023 On average, how many minutes do you engage in exercise at this level? 30 min 03/10/2023 Hunger Vital Sign Answer Date Recorded Within the past 12 months, y ou worried that your food would run out before you got the money to buy more. Never true 03/10/20 Within the past 12 months, t he food you bought just didn't last and you didn't have money to get more. Never true 03/10/2023 PRAPARE - Transportation Answer Date Re corded In the past 12 months, has l ack of transportation kept you from medical appointments or from getting medications? No 02/16 In the past 12 months, has l ack of transportation kept you from meetings, work, or from getting things needed for daily living? No 03/10/2023 Nutrition Answer Date Recorded On average, how many serving s of fruits and vegetables do you eat per day (serving size is equal to 1 cup or approximately the size of a tennis ball)? 0-2 03/10/2023 Dental Answer Date Recorded Dental: Regular Dentist Yes 03/10/20 Employment Answer Date Recorded Employment status Retired 03/10/2023 Housing Stability Answer Date Recorded What is your living situation today? 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 Gender Identity Female 03/10/2023 8:01 PM CDT Sexual Orientation Straight 03/10/2023 8: 01 PM CDT Plan of Treatment Health Maintenance Due Date Last Done Comments Hepatitis C Screening 1950 DTaP,Tdap,and Td Vaccines (1 - Tdap) 1967 IPV Vaccines (2 of 3 - Adult catch-up series) 09/20/2017 08/23/2017 COVID-19 Vaccine (2023-2 5 season) 2024 09/06/2023, 04/16/2023, 04/16/2022, Additional history exists Influenza Vaccine (#1) 2024 , 04/16/2022, 04/15/2021, Additional history exists Depression Screening (Annual PHQ-2) 07/18/2024 Fall Risk Screen (Annual) 07/18/2024 Colonoscopy Discontinued 07/15/2004 Colorectal Cancer Screening Discontinued Pneumococcal vaccine (50+ years) Completed 03/09/20 18, 09/29/2016 Zoster Vaccines Completed 07/15/2021, 01/13/2021 RSV vaccine - (32-3 6 weeks) or 60+ years Completed 05/06/2023 CT Colonography Discontinued Cologuard Discontinued FIT Discontinued Insurance MEDICARE [facility] Care Teams Bowling Ball Engraver Relationship Specialty Start Date End Date None Reported, Pcp PCP - General 05/25/24
--- OUTSIDE RECORDS SUMMARY | 2024-09-03 14:09 | XMS_ITS | Clinical Summary ---
Author Organization [facility] Address [place], [place] [address] Care Team Providers Care Ferry Boat Captain Name Role Phone Pcp, No Primary Care Provider Unavailabl e Allergies Active Allergy Reactions Criticality Noted Date Comments Allergenic Ext-Mixed Ragweed Respiratory Distress High 07/20/2021 House Dust Respiratory Distress High 07/20/2021 Mold Headache,Respiratory Distress High 07/20/2021 Penicillins Hives High 07/20/2021 Unlisted Allergen (Include Detail In Comments) Respiratory Distress,Hives,Rash,Itchin g High 01/06/2018 Medications Livalo 1 mg tab 11/02/2021 Act jacqui levothyroxine (SYNTHROID) 75 mcg tablet Take 75 mcg by mouth once daily. 10/01/2021 Active levocetirizine (XYZAL) 5 mg tab tablet Take 5 mg by mouth once daily. 10/01/2021 Active dicyclomine (BENTYL) 10 mg capsule Take 10 mg by mouth. 06/01/2021 Active Social History Tobacco Use Types Packs/Day Years Used Date Smoking Tobacco: Never Assessed Comments Unknown Sex and Gender Information Value Date Recorded Sex Assigned at Not on file Legal Sex Female 8:16 PM CDT Gender Identity Not on file Sexual Orientation [...] ag e 18-79 1966 Tetanus booster 1968 Pneumococcal series for age 50+ (1 of 1 - PCV) 1998 Zoster (shingles) series for age 50+ (1 of 2) 1998 DEXA/DXA scan for age 65+ 2013 Medicare Wellness for age 65+ 2013 RSV vaccine for adults or (1 - 1-dose 75+ series) 2023 COVID-19 vaccine series (2023- season) 2024 10/16/2021, 04/10/2021, 09/30/2020, Additional history exists Influenza for age 65+ 03/18/2024 Insurance MEDICARE [place] ONLY Care Teams Ferry Boat Captain Relationship Specialty Start Date End Date Pcp, No . PCP - General 11/03/21
--- OUTSIDE RECORDS SUMMARY | 2024-09-03 14:09 | XMS_ITS | Clinical Summary ---
Author Organization [facility] Address [address], [place] [address] Care Team Providers Care Carton Maker Name Role Phone Unavailable Primary Care Provider [...] for each transition of care or referral. [facility] Allergies Active Allergy Reactions Criticality Noted Date Comments Cottonseed Oil Gastrointestinal 07/20/2021 Dust Respiratory Distress High 07/20/2021 Grass Pollen(K-O-R-T-Swt Rudy) Respiratory Distress High 07/20/2021 Milk-Related Compounds Rash 07/20/2021 Mixed Ragweed Respiratory Distress High 07/20/2021 Molds & Smuts Headache,Respiratory Distress High 09/2021 Other Hives High 07/20/2021 Penicillins Hives High 07/20/2021 Zoster Vac Recomb Adjuvanted Hives,Itching,Rash High 07/20/2021 Medications Albuterol Sulfate (PROAIR DIGIHALER IN) Inhale 2 [...] at Not on file 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 Gender Identity Not on file Sexual Orientation Not on file Plan of Treatment Health Maintenance Due Date Last Done Comments Hep C Screening (Preventive Services) 1950 Medicare Annual Wellness Visit 1950 DTaP/Tdap/Td (1 - Tdap) 1967 Dexa 2013 Pneumococcal 50+ Yrs (2 of 2 - PCV) 03/09/2019 03/09/2018 RSV (1 - 1-dose 75+ series) 2023 COVID-19 Vaccine (4 - 2023- season) 2024 04/10/2021, 09/30/2020, 09/09/2020 Influenza (#1) 2024 04/15/2021, 03/19, 05/02/2019, Additional history exists MCV4 Aged Out [...] on patient's age to complete this topic Meningococcal B Aged Out No longer el igible based on patient's age to complete this topic Insurance * Guarantor: Nina Mix Account Type Relation to Patient Date of Phone Billing Address Personal/Family Self 1950 [address] [place] [id number] MEDICARE [facility]
[2024-09-03 14:21] VITALS: BP 112/76; PULSE 108; RESP 18; TEMP 36.1; O2SAT 97; BMI 27.5
--- NOTE | 2024-09-03 14:24 | CRLHL7_ITS ---
For Patients: As a result of the Century Cures Act, medical imaging exams and procedure reports are released immediately into your electronic medical record. You may view this report before your referring provider. If you have questions, please contact your health care provider. INDICATION: Struck head with car trunk, on blood thinners TECHNIQUE: Head CT without contrast. COMPARISON: Head CT 10/08/2020 FINDINGS: CSF spaces: Within normal limits for age. Brain parenchyma and extra-axial spaces: Possible punctate focus of hyperattenuation within the left posterior parietal lobe (2/41), only appreciated on axial sequences. There are stable low attenuation white matter changes consistent with chronic microvascular disease. No sign of mass or midline shift. Skull base and calvarium: The visualized paranasal sinuses and mastoid air cells demonstrate no acute or significant findings. The visualized orbits are grossly unremarkable. No skull fractures. Stable findings of hyperostosis frontalis interna. IMPRESSION: Possible punctate focus of hemorrhage within the left posterior parietal lobe, possibly artifactual although follow-up CT can be performed in 6 hours to assess stability. Findings discussed with Dr. Parra by Dr. Colbert via phone at 3:30 pm VETERANS ADVISER on 09/03/2024 Please note that all CT scans at this facility use dose modulation, iterative reconstruction, and/or weight-based dosing when appropriate to reduce radiation dose to as low as reasonably achievable. Dictated by Cinthia Colbert MD @ 09/03/2024 3:31:18 PM (Electronically Signed)
--- OUTSIDE RECORDS SUMMARY | 2024-09-03 14:49 | XMS_ITS | Clinical Summary ---
Author Organization [facility] Address [address] [place] [address] Care Team Providers Care Hot Dip Plater Name Role Phone None Reported, Pcp Primary Care Provider Unavail able Source Comments Patient records contain information from all sites at [facility]. For routine questions regarding patient records, call [phone] during business hours, M-F 8:00 AM - 5:00 PM Central Time. Record requests for emergency care only can be directed to [phone] at any time.[facility] Immunizations Immunization Administration Dates Next Due Influenza, [...] your living situation today? 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
--- OUTSIDE RECORDS SUMMARY | 2024-09-03 14:49 | XMS_ITS | Clinical Summary ---
Author Organization [facility] Address [place], [place] [address] Care Team Providers Care Mud Analysis Supervisor Name Role Phone Pcp, No Primary Care [...] 03/18/2024 Insurance MEDICARE [place] ONLY Care Teams Mud Analysis Supervisor Relationship Specialty Start Date End Date Pcp, No . PCP - General 11/03/21
--- OUTSIDE RECORDS SUMMARY | 2024-09-03 14:49 | XMS_ITS | Clinical Summary ---
Author Organization [facility] Address [address], [place] [address] Care Team Providers Care Felter Tennis Balls Name Role Phone Unavailable Primary Care Provider [...] for each transition of care or referral. 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
--- NOTE | 2024-09-03 15:45 | ED.GENADULT ---
HPI - General Adult General Chief complaint: Fall/Minor Trauma Stated complaint: Hit head, on thinners Time Seen by Provider: 09/03/24 14:35 History of Present Illness HPI narrative: This 74-year-old female is on anticoagulants because of a previous deep venous thrombosis. She comes in because she bumped her head on her car. She did not have loss of consciousness. She has some localized tenderness in the top of her head where this occurred but shows no sign of injury. She does not have any neurologic deficits. She comes in knowing that she is at increased risk when on anticoagulants. Related Data Home Medications ?Medication ?Instructions ?Recorded ?Confirmed albuterol sulfate 90 mcg/actuation 2 puff inhalation Q4H PRN 06/17/22 08/07/24 aerosol inhaler dicyclomine 10 mg capsule 10 mg PO ONCE PRN 06/17/22 09/03/24 diclofenac sodium 1 % topical gel 2 g topical QID PRN 07/12/23 08/07/24 (Voltaren Arthritis Pain) Previous Rx's ?Medication ?Instructions ?Recorded zolpidem 5 mg tablet 5 mg PO QHS PRN sleep #90 tabs 01/30/24 levocetirizine 5 mg tablet 5 mg PO BID #180 tabs 08/01/24 apixaban 5 mg tablet 5 mg PO BID #180 tabs 08/07/24 ergocalciferol (vitamin D2) 1,250 50,000 unit PO QWEEK #12 caps 08/07/24 mcg (50,000 unit) capsule (Vitamin D2) levothyroxine 75 mcg tablet 75 mcg PO DAILY #90 tabs 08/07/24 Allergies Allergy/AdvReac Type Severity Reaction Status Date / Time cat dander Allergy Intermediate Verified 08/07/24 10:30 dog dander Allergy Intermediate Verified 08/07/24 10:30 house dust Allergy Intermediate Verified 08/07/24 10:30 mold Allergy Intermediate Verified 08/07/24 10:30 pollen extracts Allergy Intermediate Verified 08/07/24 10:30 nickel Allergy Unknown Verified 08/07/24 10:30 poison sumac extract Allergy Verified 08/07/24 10:30 Penicillins AdvReac Severe Hives Verified 08/07/24 10:30 goat dander Allergy Intermediate Uncoded 08/07/24 10:30 Pneumococcal Vaccines Allergy Intermediate Rash Uncoded 08/07/24 10:30 herpes zoster vaccine Allergy Mild Hives Uncoded 08/07/24 10:30 Review of Systems Status of ROS: Reports: 10 or more systems reviewed and unremarkable except as noted in History and below Narrative: Constitutional: No fevers, no weight gain or loss. Eyes: No discharge. No vision changes. HENT: No congestion, no sore throat, no ear pain. Cardiovascular: No chest pain, no palpitations. Respiratory: No shortness of breath, no wheezes, no cough. Gastrointestinal: No abdominal pain, no vomiting, no diarrhea. Genitourinary: No dysuria, no hematuria. Musculoskeletal: Normal range of motion. Skin: No rashes, no pruritis. Neurological: No dizziness, weakness, sensory change, speech change. Endo/Heme/Allergies: No bruising or bleeding. No polydipsia. Pysch: no suicidality, no anxiety, no insomnia. All other systems reviewed and are negative. [facility] Medical History (Updated 09/03/24 @ 15:47 by Jose Parra MD) History of nephrolithiasis ?Z87.442 - Personal history of urinary calculi (ICD-10) History of asthma ?Z87.09 - Personal history of other diseases of the respiratory system (ICD-10) Surgical History S/P foot surgery, left ?Z98.890 - Other specified postprocedural states (ICD-10) History of cataract extraction ?Z98.49 - Cataract extraction status, unspecified eye (ICD-10) History of spinal fusion ?Z98.1 - Arthrodesis status (ICD-10) History of appendectomy ?Z90.49 - Acquired absence of other specified parts of digestive tract (ICD-10) History of cholecystectomy ?Z90.49 - Acquired absence of other specified parts of digestive tract (ICD-10) History of tonsillectomy ?Z90.89 - Acquired absence of other organs (ICD-10) Family History (Updated 11/09/23 @ 08:41 by Gracy Tinoco ~ SHAREPOINT ADMINISTRATOR, SHAREPOINT ADMINISTRATOR) Father Prostate cancer Sister Endometrial cancer Social History (Updated 08/07/24 @ 11:38 by Dianelys Sloan ~ CTA) Narrative: 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 What is your current living situation?: I presently have a place to live Problems where you live: no known problems In the past 12 months, utilities in danger of being shut off: no In past 12 months, lack of transportation kept you from medical appts, meetings, work, or getting things needed for daily living: no In the past 12 mos, have been you worried that your food would run out before you had money to buy more?: never true In the past 12 mos, the food you bought just didn't last and you didn't have money to buy more?: never true Smoking Status: Former smoker What tobacco products do you use: cigarettes Smoking quit date/years: >15 years ago Do you use any of these nicotine containing products: None Second hand tobacco smoke exposure: No How often do you have a drink containing alcohol: monthly or less How often do you have six or more drinks on one occasion: Never AUDIT-C Alcohol total score: 1 Non-prescribed substance use: denies use How often does anyone, including family, friends and others, physically hurt you: decline to answer How often does anyone, including family, friends and others, insult or talk down to you: decline to answer How often does anyone, including family, friends and others, threaten you with harm: decline to answer How often does anyone, including family, friends and others, scream or curse at you: decline to answer Exam Narrative: Exam Narrative: Constitutional: Well-developed, well-nourished, no acute distress. HEENT: Normocephalic, atraumatic. Neck: Normal range of motion. Nontender. Supple. Heart: Regular. No murmurs. Normal rate. Intact distal pulses. Lungs: Clear to auscultation. No chest discomfort. No wheezes, rhonchi, or rales. Abdomen: Normal bowel sounds. Nontender. No rebound tenderness. Genitalia: Deferred. Back: No midline tenderness. Normal range of motion. Extremities: Normal range of motion. No injury. Skin: Intact. No rash. Warm. No erythema or pallor. Neurologic: No altered sensation. No weakness. Alert and oriented. Psychiatric: No suicidality. No anxiety or depression. No insomnia. Nursing notes and vitals signs are reviewed. Const: Vital Signs, click to edit/add: Vital Signs - 24 hr 09/03/24 14:21 Temperature 96.9 F L Pulse Rate [Pulse Oximeter] 108 H Respiratory Rate 18 Blood Pressure [Ri ght Upper Arm] 112/76 Pulse Oximetry 97 Oxygen Delivery Me thod Room Air Course Vital Signs Vital signs: Initial Vital Signs Temperature 96.9 F L 09/03/24 14:21 Temperature Source Temporal Artery Scan 09/03/24 14:21 Pulse Rate 108 H 09/03/24 14:21 Respiratory Rate 18 09/03/24 14:21 Blood Pressure 112/76 09/03/24 14:21 Blood Pressure Mean 88 09/03/24 14:21 Pulse Oximetry 97 09/03/24 14:21 Oxygen Delivery Method Room Air 09/03/24 14:21 Vital Signs Temperature 96.9 F L 09/03/24 14:21 Pulse Rate 108 H 09/03/24 14:21 Respiratory Rate 18 09/03/24 14:21 Blood Pressure 112/76 09/03/24 14:21 Pulse Oximetry 97 09/03/24 14:21 Oxygen Delivery Method Room Air 09/03/24 14:21 Temperature 96.9 F L 09/03/24 14:21 Pulse Rate 108 H 09/03/24 14:21 Respiratory Rate 18 09/03/24 14:21 Blood Pressure 112/76 09/03/24 14:21 Pulse Oximetry 97 09/03/24 14:21 Oxygen Delivery Method Room Air 09/03/24 14:21 Medical Decision Making MDM Narrative Medical decision making narrative: This patient comes in stating that she knows that she is at increased risk for hemorrhage when on anticoagulants. She did bump her head but did not have loss of consciousness. CT scan is obtained and according to radiology report there is of very slight suspicion of a possible punctate hemorrhage that would benefit from a repeat CT scan 6 hours for follow-up. I explained these results to the patient to agrees to this plan. Care for this patient is handed off to the next ER doc to review results of the next imaging study and proceed accordingly. Discharge Plan Discharge Clinical Impression: Closed head injury Prescriptions: No Action diclofenac sodium [Voltaren Arthritis Pain] 1 % gel 2 g topical QID PRN Rx Instructions: apply to single elbow, wrist or hand; for hand includes palm/fingers/back of hand albuterol sulfate 90 mcg/actuation HFA aerosol inhaler 2 puff inhalation Q4H PRN dicyclomine 10 mg capsule 10 mg PO ONCE PRN levothyroxine 75 mcg tablet 75 mcg PO DAILY Qty: 90 3RF apixaban 5 mg tablet 5 mg PO BID Qty: 180 3RF ergocalciferol (vitamin D2) [Vitamin D2] 1,250 mcg (50,000 unit) capsule 50,000 unit PO QWEEK Qty: 12 0RF zolpidem 5 mg tablet 5 mg PO QHS PRN (Reason: sleep) Qty: 90 1RF levocetirizine 5 mg tablet 5 mg PO BID Qty: 180 0RF Follow Up/Referrals: Marisol Lutz MD [Primary Care Provider] -
[2024-09-03 16:16] VITALS: BP 130/87; PULSE 81; RESP 18; TEMP 36.8; O2SAT 95
[2024-09-03 18:59] VITALS: BP 128/75; PULSE 100; RESP 18; O2SAT 95
--- NOTE | 2024-09-03 21:00 | CRLHL7_ITS ---
For Patients: As a result of the Century Cures Act, medical imaging exams and procedure reports are released immediately into your electronic medical record. You may view this report before your referring provider. If you have questions, please contact your health care provider. INDICATION: 6 hour repeat examination to assess for intracranial hemorrhage COMPARISON: Same day CT of the head TECHNIQUE: CT of the head without contrast. FINDINGS: Brain, ventricles, and extra-axial spaces: No acute intracranial hemorrhage. The punctate hyperattenuating focus reported in the left parietal lobe on the comparison exam is not visualized on the current study. Noyola-white differentiation is grossly preserved. Mild hypoattenuating changes in the white matter which are nonspecific, but commonly attributable to chronic microangiopathic change. Size of the ventricles and sulci appears to be commensurate with age. There are intracranial vascular calcifications. Bones: No acute osseous findings. There is bilateral hyperostosis frontalis. Visualized paranasal sinuses are clear. Visualized mastoid air cells are clear. Chronic incomplete fusion of the C1 posterior elements. Advanced degenerative change of the left greater than right temporomandibular joint. IMPRESSION: No acute intracranial hemorrhage. The punctate hyperattenuating focus reported in the left parietal lobe on the comparison exam is not visualized on the current study. Please note that all CT scans at this facility use dose modulation, iterative reconstruction, and/or weight-based dosing when appropriate to reduce radiation dose to as low as reasonably achievable. Dictated by Husam David MD @ 09/03/2024 9:06:56 PM (Electronically Signed)
== END 2024-09-03 21:53 | disposition home or self-care (01) ==
LOC: ED 14:47
PROVIDERS: Emergency Provider Emergency Medicine Emergency Medical Services; PCP Internal Medicine
DX: S09.90XA Unspecified injury of head, initial encounter (principal); Z79.01 Long term (current) use of anticoagulants
CPT/HCPCS: 70450; 99283; 99284

== ENCOUNTER 2024-09-04 09:43 | Outpatient (RCR) | payer MEDICARE, OTHER, SELFPAY ==
--- NOTE | 2024-08-28 14:49 | ONC.NURNOTE ---
Diagnosis: Osteoporosis
[2024-09-04 09:59] VITALS: BP 119/75; PULSE 41; RESP 16; TEMP 36.1; O2SAT 96
[2024-09-04 10:15] VITALS: PULSE 77
[2024-09-04] MEDS: SODIUM CHLORIDE 0.9 % (FLUSH) 10 ML SYRINGE IVF (10:45)
== END 2025-03-03 23:59 | disposition home or self-care (01) ==
LOC: CCIC 09:43
PROVIDERS: PCP Internal Medicine; Referring Provider Internal Medicine; Visit Provider Clinical Nurse Specialist
DX: M81.0 Age-related osteoporosis without current pathological fracture (principal)
CPT/HCPCS: 96365; J3489; J7050

== ENCOUNTER 2024-11-09 10:03 | Outpatient (CLI) | payer MEDICARE, BC, SELFPAY ==
--- NOTE | 2024-11-09 10:15 | CRLHL7_ITS ---
For Patients: As a result of the Century Cures Act, medical imaging exams and procedure reports are released immediately into your electronic medical record. You may view this report before your referring provider. If you have questions, please contact your health care provider. INDICATION: BILATERAL SCREENING MAMMOGRAM, ASYMPTOMATIC 74 Y/O F COMPARISON: 09/27/23, 11/26/21, 09/29/20 TECHNIQUE: CC and MLO views were obtained. These mammographic images have been obtained using full-field digital technique. These mammographic images were interpreted with the benefit of computer aided detection and tomosynthesis. BREAST COMPOSITION: There are scattered areas of fibroglandular density. FINDINGS: No suspicious findings. ASSESSMENT: BI-RADS 1 Negative RECOMMENDATION: Annual screening mammogram. A lay language report of this examination will be provided to the patient. Dictated by: Vadim Hunter MD @ 11/09/2024 12:33:00 (Electronically Signed)
== END 2024-11-09 10:04 | disposition home or self-care (01) ==
LOC: MAMMO 10:03
PROVIDERS: PCP Internal Medicine; Visit Provider Internal Medicine
DX: Z12.31 Encounter for screening mammogram for malignant neoplasm of breast (principal)
CPT/HCPCS: 77063; 77067

== ENCOUNTER 2024-12-17 14:00 | Outpatient (RCR) | payer MEDICARE, BC, SELFPAY ==
--- NOTE | 2024-09-12 10:09 | PT.OPEX ---
PT [place] [facility] Eval PT [facility] Outpatient Eval Start: 08/21/24 13:39 Freq: Status: Active Protocol: Document 09/12/24 07:10 MLS (Rec: 09/12/24 10:03 MLS [email or web address]) E-signed By Taisha Dick DPT Physical Therapy Outpatient Evaluation Insurance Information Recert Due Date 12/10/24 Insurance Name Medicare B,Other; See Comments Insurance Information/Comments [employer] Medical Diagnosis M54.50 LBP G89.29 other chronic pain Treating Diagnosis Lumbar stretching and strengthening Core program Referring MD Dr. Lutz Subjective Subjective Patient is a 74 year old female who presents to physical therapy with signs and symptoms consistent with low back pain. She states that she is having pain with household tasks. She states that when she lays down, the pain improves. She reports that it normally starts after about 15 minutes. No complaints of numbness or tingling. She states that the pain is normally equal on both sides. Aggravating factors include: cleaning, household tasks, sitting for long time, standing too long. Alleviating factors include: laying down. Significant past medical history includes arthritis, osteoporosis, and previous neck pain. Patient would like to achieve less pain through physical therapy sessions. Pain Comments Today: 2/10 on a 0-10 pain scale with 10 = extreme pain At its worst: 5/10 At its best: 1/10 Current Work Status Retired Precautions Weight Bearing Status Full Weight Bearing Therapy Limitations/Systems Review Not Limited Objective Other/Pertinent Objective Posture Assessment: Decreased lordosis LUMBAR ROM Flexion: mid calf repeated flexion: no increase in pain Extension: WNL repeated ext: increase in pain Right Sidebend: mid thigh with pain Left Sidebend: mid thigh with pain Right Rotation: 50% Left Rotation: 25% LE MMT Hip flexion: R 4/5 L 4/5 Hip Extension: R 4/5 L 4/5 Hip abduction: R 4/5 L 4/5 Knee extension: R 4+/5 L 4+/5 Knee Flexion: R 4+/5 L 4+/5 Dorsiflexion: R 4/5 L 4/5 Plantarflexion: R 4/5 L 4/5 JOINT MOBILITY/PALPATION Tenderness with palpation of bilateral OL, piriformis and multifidi SPECIAL TESTS -Quadrant test: pain right and left -Single leg stance: no increase in pain -Slump test: neg B -Straight leg raise: neg B -Crossed straight leg raise: neg B SI/HIP -ADWOA: mild increase in pain on right -FADIR: neg B TX: Access Code: [email or web address] URL: [email or web address] Date: 09/12/2024 Prepared by: Taisha Dick Exercises - Supine Lower Trunk Rotation - 1 x daily - 7 x weekly - 3 sets - 10 reps - Supine Single Knee to Double Knee to Chest Stretch - 1 x daily - 7 x weekly - 3 sets - 10 reps Functional Test Performed & Score 25/50 Modified Oswestry Low Back Pain Questionnaire Assessment Assessment/Impression Pt is a 74 year old female who presents with concerns of low back pain. Patient also has notable objective findings including limited ROM, tenderness to palpation, and decreased strength which are also likely contributing to the problem. Patient is a good candidate for skilled therapy to target deficits described above. Skilled PT intervention is necessary for use of therapeutic exercise manual therapy, neuromuscular re- education, gait training, and therapeutic activity. Functional impairments include difficulty with: standing, exercising, cleaning, walking and ADLs. See appropriate sections of PT eval for complete list of goals and POC . D/C plan and criteria is for pt to achieve the goals as listed below or until max rehab potential is met. Pt was agreeable with plan of care and goals established. Primary Functional Limitations standing exercising cleaning walking ADLs Plan of Care Rehabilitation Potential Good Physical Therapy Goals Within 10-12 weeks: 1.Pt will demonstrate independence in performance of home exercise program with the use of video and/or handouts in order to optimize functional mobility and reduce risk for re-injury. 2.Pt will demonstrate consistent HEP compliance to ensure progress in reaching established goals during course of care. 3.Patient will be able to grocery shop for up to one hour without pain. 4.Patient will report pain levels <2/10 with all activities in order to improve functional mobility at home, work and during functional leisure activities. 5.Patient is able to sleep without waking more than one time due to pain in a 6-8 hour time frame. 6.Patient will be able to walk up to one mile without pain. 7.Patient will be able to bend and lift household items from the floor to shoulder height to perform ADLs without pain. 8.Pt will be able to ascend/ descend 1 flight of stairs in order to perform ADLs pain free. 9.Pt will exhibit 5 pt improvement in Modified Oswestry Outcome measure to demonstrate functional improvement and progress towards goals Coordination/Communication With Referral Source Treatment Plan/Direct Interventions Joint Mobilization,Manual Therapy,Neuromuscular Re-ed, Therapeutic Activities, Therapeutic Exercises Patient Will Be Discharged From Therapy Independently Progressing Evaluation Billing Untimed Code Treatment Minutes 30 Complexity Low Certification Information Provider Signature Required Yes Provider Signature Shows Agreement With POC & Medical Necessity Physician NPI Number Write NPI# Here Physician Comment/Change : Physician Signature & Date Requested Please Sign/Date Here
== END 2025-01-16 12:14 | disposition home or self-care (01) ==
PROVIDERS: PCP Internal Medicine; Visit Provider Internal Medicine
DX: M54.50 Low back pain, unspecified (principal); G89.29 Other chronic pain; Z51.89 Encounter for other specified aftercare
CPT/HCPCS: 97110; 97140; 97161

== ENCOUNTER 2025-01-15 12:48 | Outpatient (CLI) | payer MEDICARE, BC, SELFPAY | END 2025-01-15 12:49 | disposition home or self-care (01) | LOC: NFLDREF 12:48 | PROVIDERS: PCP Internal Medicine; Visit Provider Internal Medicine | DX: N18.9 Chronic kidney disease, unspecified (principal) | CPT/HCPCS: 80053 ==

== ENCOUNTER 2025-01-29 10:21 | Day surgery (SDC) | payer MEDICARE, BC, SELFPAY ==
[2025-01-29] VITALS (25 sets, daily range): BP systolic 92–127; BP diastolic 54–75; PULSE 65–87; RESP 12–16; TEMP 36.3–37.4; O2SAT 90–97; BMI 28.8
[2025-01-29] MEDS: ACETAMINOPHEN 500 MG TABLET 1000 MG PO ×3 (11:15→22:45)
[2025-01-29] MEDS: OXYCODONE (CR) 10 MG TAB.ER.12H PO (11:15)
[2025-01-29] MEDS: SODIUM CHLORIDE 0.9 % (FLUSH) 10 ML SYRINGE IVF (11:30)
[2025-01-29] MEDS: LACTATED RINGERS 1000 ML 1,000 ML 100 ML IV ×2 (11:30→15:00)
[2025-01-29] MEDS: MIDAZOLAM HCL 1 MG/ML inj IVP (12:06)
--- NOTE | 2025-01-29 12:12 | SUR.PREOP ---
TIME?OUT:?1205 PT/RN/MDA?VERIFICATION?OF?SURGICAL?SITE,?PROCEDURE,?AND?CONSENT OBTAINED?PRIOR?TO?INVASIVE?PROCEDURE.
[2025-01-29] MEDS: TRANEXAMIC ACID 100 MG/ML INJ 1000 MG IV (12:48)
--- NOTE | 2025-01-29 13:57 | P.NB_ITS ---
Nerve Block Nerve Block Time Seen by Provider: 12:10 Date Seen: 01/29/25 Type of block requested by surgeon for post-operative analgesia: adductor canal Side: right Time out performed: Yes Verification of patient name: Yes Verification of date of : Yes Site marking: site marked Name of person performing procedure: Dominguez Continuous monitoring Was continuous monitoring of O2 sat, B/P, field artillery crewmember, recorded every 15 minutes?: Yes Procedure Checklist: sterile prep, needles and gloves Ultrasound guided. Images saved: Yes Medications given in 5ml increments after negative aspiration: Marcaine %: 0.25 mL: 15 Needle gauge: 20 Precedex (mcg): 25 Patient tolerated procedure well: Yes Block Charges Block Charge (with Pro Fee): Femoral Nerve Use of Ultrasound Machine for Block: Yes- US Guidance/pain block
--- NOTE | 2025-01-29 13:58 | P.NB_ITS ---
Nerve Block Nerve Block Time Seen by Provider: 12:10 Date Seen: 01/29/25 Type of block requested by surgeon for post-operative analgesia: geniculars Side: right Time out performed: Yes Verification of patient name: Yes Verification of date of : Yes Site marking: site marked Name of person performing procedure: Dominguez Continuous monitoring Was continuous monitoring of O2 sat, B/P, threat monitoring analyst, recorded every 15 minutes?: Yes Procedure Checklist: sterile prep, needles and gloves Ultrasound guided. Images saved: Yes Medications given in 5ml increments after negative aspiration: Marcaine %: 0.25 mL: 9 Needle gauge: 25 Patient tolerated procedure well: Yes Block Charges Block Charge (with Pro Fee): Genicular Nerve Block
--- NOTE | 2025-01-29 14:01 | CRLHL7_ITS ---
For Patients: As a result of the Cures Act, medical imaging exams and procedure reports are released immediately into your electronic medical record. You may view this report before your referring provider. If you have questions, please contact your health care provider. Indication: POST OP Technique: 2 views right knee film Findings/Impression: Hardware from a right total knee arthroplasty is in satisfactory position. Bone alignment is normal. No sign of acute fracture. Postop changes are within normal limits. Dictated by Vadim Hunter MD @ 01/30/2025 9:32:46 AM (Electronically Signed)
--- NOTE | 2025-01-29 14:07 | P.ORPRC_ITS ---
Procedure Note Date of procedure: 01/29/25 Procedure: PREOPERATIVE DIAGNOSIS: Right knee osteoarthritis POSTOPERATIVE DIAGNOSIS: Right knee osteoarthritis NAME OF OPERATION: Right total knee arthroplasty SURGEON: Blaine Mast MD PACKAGE COLLECTOR: Abigail Henderson PA-C ANESTHESIA: Spinal ESTIMATED BLOOD LOSS: 0 mL COMPLICATIONS: None SPECIMENS: None DRAINS: None PREOPERATIVE ANTIBIOTICS: Ancef 1 g IMPLANTS: 1. J&J Attune #6 posterior stabilized femur 2. #6 fixed-bearing tibia 3. #6 posterior stabilized, 6 mm fixed-bearing polyethylene 4. 38 patella INDICATIONS: The patient is a 74-year-old with a longstanding history of severe, unrelenting right knee pain secondary to end-stage (grade IV) right knee osteoarthritis. Despite appropriate nonoperative management, including activity modification, anti-inflammatories, [id number] pain medication, bracing, p hysical therapy, and injections they continue to have pain and disability. Operative intervention was offered. The risks, benefits and expected outcomes were discussed in detail. These included but were not limited to: Infection, bleeding, injury to blood vessel or nerve, venous thromboembolism. All questions were answered to their satisfaction. Use of an addictions counselor assistant was necessary throughout the case for patient positioning and safety, soft tissue retraction, and closure. PROCEDURE: Spinal anesthesia was administered. The patient was placed supine on the operating table. The addictions counselor assistant made sure the patient was positioned appropriately. The lower extremity was prepped and draped in the usual sterile fashion. The limb was exsanguinated with the Carlos bandage. The pneumatic tourniquet was inflated to 300 mmHg. A standard anterior incision was made with the knee in flexion. Subcutaneous dissection was sharply taken through fascial layer #1. Full-thickness medial and lateral flaps were elevated. The addictions counselor assistant retracted the soft tissues and protected them throughout the case. A standard subvastus approach was made. The patella was subluxed. The infrapatellar fat pad was debrided. The menisci and cruciate ligaments were sharply d?brided. Marginal osteophytes were d?brided with the rongeur. The drill was used to penetrate the femoral canal. The canal was aspirated and irrigated with pulse lavage. The intramedullary femoral guide was placed for a 5-degree valgus cut, removing 12 mm off the distal femur. The saw was used to make the cut. Whitesides line and the trans epicondylar axis were marked. The femoral sizing guide was pinned onto the distal femur. Three degrees of external rotation nicely parallels the transepicondylar axis. Pins were placed for posterior referencing. The four-in-one cutting guide was pinned onto the distal femur. The anterior, posterior, and chamfer cuts were made. The addictions counselor assistant protected the collateral ligaments. The box cutting guide was pinned. The box cuts were made. The boxed trial was placed and was an excellent fit. Drill holes for the lugs were made. Attention was then turned to the proximal tibia. The extramedullary tibial guide was placed for a neutral varus/valgus cut with 5 degrees of posterior slope, removing 1 mm based off the medial tibial surface. The addictions counselor assistant protected the collateral ligaments and the neurovascular bundle. The saw was used to make the cut. Trial components were placed. The knee was nicely balanced in both flexion and extension. The trial components were removed. The tray was placed in appropriate rotation, parallel to our tibial cutting pins. It was pinned by the addictions counselor assistant and the drill and the punch were used. The tray was removed. The punch was used again. We placed a bone plug in the femoral canal. Attention was then turned to the patella. [place] patellar thickness was 21 mm. The lobster claw resection guide was used with the 7.5 mm yoly. The saw was used to make the cut. Drill holes were made by the addictions counselor assistant. The trial was placed and was an excellent fit. Cancellous surfaces were irrigated with pulse lavage and thoroughly dried by the addictions counselor assistant. We cemented the tibial component, then the femoral component. We impacted the 6 mm polyethylene onto the tibial tray. The knee was brought into full extension. We then cemented the patellar component. Excessive cement was removed. The cement was allowed to harden. The knee was taken through a range of motion and was found to be nicely balanced in both flexion and extension. The patella tracks centrally. The addictions counselor assistant did a three minute dilute Betadine solution soak. The addictions counselor assistant irrigated the wound with 3 liters of normal saline via pulse lavage. The addictions counselor assistant reapproximated the extensor mechanism with #1 Vicryl in an interrupted [id number] fashion. The addictions counselor assistant then ran the extensor mechanism with a #1 PDO Stratafix. The addictions counselor assistant closed the subcutaneous tissues with a 3-0 Stratafix and the skin with a running 3-0 Stratafix in a subcuticular fashion. Glue was used to seal the skin. The addictions counselor assistant placed a dry dressing. Sponge and needle counts were correct x2. The patient tolerated the procedure well. There were no apparent complications. They were carefully transferred to the hospital bed and taken to the postanesthesia care unit in satisfactory condition. PLAN: The patient will be mobilized with physical therapy. The usual dose of Eliquis can be restarted. They will be discharged to home once medically appropriate.
--- NOTE | 2025-01-29 14:52 | W.ANESCHARGE ---
Anesthesia Charges Start Date/Time Anesthesia Start Date: 01/29/25 Anesthesia Start Time: 12:27 Stop Date/Time Anesthesia Stop Date: 01/29/25 Anesthesia Stop Time: 14:49 Summary Extremes of Age - Over 70 or under 1: MDA Coding CPT Codes CPT Codes: ANESTH KNEE ARTHROPLASTY - 36937 ([id number]) QX - RESIDENCY COORDINATOR SVC W/ MD MED DIRECTION, QK - TEMPERATURE CONTROL INSPECTOR 2-4 CNCRNT ANES PROC, P2 - PATIENT W/MILD SYST DISEASE Additional Codes: Summary - Extremes of Age - Over 70 or under 1: MDA ([id number])
--- NOTE | 2025-01-29 15:03 | P.ANES_ITS ---
Anesthesia Charges Start Date/Time Anesthesia Start Date: 01/29/25 Anesthesia Start Time: 12:27 Stop Date/Time Anesthesia Stop Date: 01/29/25 Anesthesia Stop Time: 14:49 Summary Extremes of Age - Over 70 or under 1: BUS INSPECTOR Coding CPT Codes CPT Codes: ANESTH KNEE ARTHROPLASTY - 30282 ([id number]) P2 - PATIENT W/MILD SYST DISEASE, QK - FLOOR MOLDER 2-4 CNCRNT ANES PROC, QX - BUS INSPECTOR SVC W/ MD MED DIRECTION Additional Codes: Summary - Extremes of Age - Over 70 or under 1: BUS INSPECTOR ([id number])
--- NOTE | 2025-01-29 15:03 | W.ANESCHARGE ---
Anesthesia Charges Start Date/Time Anesthesia Start Date: 01/29/25 Anesthesia Start Time: 12:27 Stop Date/Time Anesthesia Stop Date: 01/29/25 Anesthesia Stop Time: 14:49 Summary Extremes of Age - Over 70 or under 1: MOTOR TRANSPORT INSPECTOR Coding CPT Codes CPT Codes: ANESTH KNEE ARTHROPLASTY - 10201 ([id number]) P2 - PATIENT W/MILD SYST DISEASE, QK - DESK SERGEANT 2-4 CNCRNT ANES PROC, QX - MOTOR TRANSPORT INSPECTOR SVC W/ MD MED DIRECTION Additional Codes: Summary - Extremes of Age - Over 70 or under 1: MOTOR TRANSPORT INSPECTOR ([id number])
--- NOTE | 2025-01-29 16:13 | P.IMCN_ITS ---
Date of Consult Patient: [facility] Patient Consult date: 01/29/25 Requesting Physician: Orthopedics Primary Care Provider: Marisol Lutz MD Consult Narrative Narrative: Nina Mix is a 74 year old female admitted for right total knee arthroplasty. Procedures performed by Dr. Mast. No complications. Postoperatively she is reporting right knee pain but otherwise feeling well. [facility] that [facility] has been hypoxic. She has not been dyspneic or had any recent respiratory symptoms. She does have a history of mild intermittent asthma. Remote history of smoking. Previous history of DVTs without PEs. No history of heart disease. Unaware of any history of sleep apnea but she does report that she sleeps poorly generally. 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 Eliquis was last taken Tuesday evening January 25. Resume in the morning. Review of Systems Narrative: No recent illness or injury. 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.009 - Postthrombotic syndrome without complications of unspecified extremity (ICD-10) Pre-diabetes ?R73.03 - Prediabetes (ICD-10) Chronic abdominal pain ?R10.9 - Unspecified abdominal pain (ICD-10) ?G89.29 - Other chronic pain (ICD-10) Irritable bowel syndrome ?K58.9 - Irritable bowel syndrome without diarrhea (ICD-10) Physical deconditioning ?R53.81 - Other malaise (ICD-10) Hiatal hernia ?K44.9 - Diaphragmatic hernia without obstruction or gangrene (ICD-10) Orthostatic hypotension ?I95.1 - Orthostatic hypotension (ICD-10) Chronic neck pain ?M54.2 - Cervicalgia (ICD-10) ?G89.29 - Other chronic pain (ICD-10) Seasonal allergies ?J30.2 - Other seasonal allergic rhinitis (ICD-10) Chronic insomnia ?F51.04 - Psychophysiologic insomnia (ICD-10) Osteoarthritis of right knee ?M17.11 - Unilateral primary osteoarthritis, right knee (ICD-10) History of deep vein thrombosis (DVT) of lower extremity (2017) ?Z86.718 - Personal history of other venous thrombosis and embolism (ICD-10) Statin intolerance ?Z78.9 - Other specified health status (ICD-10) History of nephrolithiasis ?Z87.442 - Personal history of urinary calculi (ICD-10) History of asthma ?Z87.09 - Personal history of other diseases of the respiratory system (ICD- 10) Surgical History (Updated 01/29/25 @ 16:21 by Navneet Hill MD) History of arthroplasty of right knee (01/29/25) ?Z96.651 - Presence of right artificial knee joint (ICD-10) S/P foot surgery, left ?Z98.890 - Other specified postprocedural states (ICD-10) History of cataract extraction ?Z98.49 - Cataract extraction status, unspecified eye (ICD-10) History of spinal fusion ?Z98.1 - Arthrodesis status (ICD-10) History of appendectomy ?Z90.49 - Acquired absence of other specified parts of digestive tract (ICD- 10) History of cholecystectomy ?Z90.49 - Acquired absence of other specified parts of digestive tract (ICD- 10) History of tonsillectomy ?Z90.89 - Acquired absence of other organs (ICD-10) Family History Father Prostate cancer Sister Endometrial cancer Social History (Updated 01/29/25 @ 16:18 by Navneet Hill MD) Narrative: [facility] No stairs. She plans to go home after surgery and her friend, Libra Cintron, will stay with her for 7-10 days. Closest family is her sister, Mimi Mix, who is currently hospitalized for hip fracture in [place]. Mimi his healthcare power of mergers and acquisitions attorney. Code status is full. former smoker-quit 1978. Rarely drinks alcohol. What is your current living situation?: I presently have a place to live Problems where you live: no known problems In the past 12 months, utilities in danger of being shut off: no In past 12 months, lack of transportation kept you from medical appts, meetings, work, or getting things needed for daily living: no In the past 12 mos, have been you worried that your food would run out before you had money to buy more?: never true In the past 12 mos, the food you bought just didn't last and you didn't have money to buy more?: never true Highest level of school completed/degree received: Professional degree (MD, [employer], DVM, DDS) Smoking Status: Former smoker What tobacco products do you use: cigarettes Smoking quit date/years: >15 years ago Do you use any of these nicotine containing products: None Second hand tobacco smoke exposure: No How often do you have a drink containing alcohol: monthly or less Alcohol type: wine How often do you have six or more drinks on one occasion: Never AUDIT-C Alcohol total score: 1 Non-prescribed substance use: denies use Caffeine: Yes How often does anyone, including family, friends and others, physically hurt you : decline to answer How often does anyone, including family, friends and others, insult or talk down to you: decline to answer How often does anyone, including family, friends and others, threaten you with harm: decline to answer How often does anyone, including family, friends and others, scream or curse at you: decline to answer service: No Meds Home Medications and Allergies Home Medications ?Medication ?Instructions ?Recorded ?Confirmed ?Type albuterol sulfate 90 mcg/actuation 2 puff inhalation Q 4H PRN 06/17/22 01/29/25 History aerosol inhaler diclofenac sodium 1 % topical gel 2 g topical QID PRN 07/12/23 01/29/25 History (Voltaren Arthritis Pain) apixaban 5 mg tablet 5 mg PO BID #180 tabs 01/29/25 Rx levothyroxine 75 mcg tablet 75 mcg PO DAILY #90 tabs 0 08/07/24 01/29/25 Rx dicyclomine 10 mg capsule 10 mg PO DAILY abdominal fernando n #90 12/24/24 01/29/25 Rx caps zolpidem 5 mg tablet 5 mg PO QHS PRN sleep #90 ta bs 12/24/24 01/29/25 Rx levocetirizine 5 mg tablet 5 mg PO BID #180 tabs 01/1701/29/25 Rx Allergies Allergy/AdvReac Type Severity Reaction Status Date / Time cat dander Allergy Intermediate Verified 01/29/25 11:48 dog dander Allergy Intermediate Verified 01/29/25 11:48 house dust Allergy Intermediate Verified 01/29/25 11:48 mold Allergy Intermediate Verified 01/29/25 11:48 pneumococcal vaccine Allergy Intermediate Rash Verified 01/29/25 11:48 pollen extracts Allergy Intermediate Verified 01/29/25 11:48 propylene glycol Allergy Intermediate Verified 01/29/25 11:48 herpes simplex vaccine Allergy Mild Hives Verified 01/29/25 11:48 nickel Allergy Unknown Verified 01/29/25 11:48 poison sumac extract Allergy Verified 01/29/25 11:48 Penicillins AdvReac Severe Hives Verified 01/29/25 11:48 fructose AdvReac Diarrhea, Verified 01/29/25 11:48 abdominal pain goat dander Allergy Intermediate Uncoded 01/15/25 13:17 Exam Narrative: Exam Narrative: She is alert and appears in no distress. She gives her own history with good detail. Oropharynx with small airway and dry mucous membranes. Neck is supple without mass or adenopathy. Respirations are clear to auscultation. Cardiovascular: S1, S2, regular rate and rhythm. No murmur gallop or rub. Abdomen: Bowel sounds active. Abdomen is soft without tenderness or mass. Extremities without significant edema. She has intact pulses and sensation. She moves feet and ankles well. Const: Vital Signs, click to edit/add: Vital Signs - 24 hr 01/29/25 11:35 01/29/25 12:06 01/29/25 12:10 Temperature 98.3 F Pulse Rate 72 78 72 Respiratory Rate 16 14 14 Blood Pressure 127/75 113/75 111/65 Pulse Oximetry 95 97 92 Oxygen Delivery Me thod Room Air Nasal Cannula Nasal Cannula Oxygen Flow Rate 2 3 01/29/25 12:15 01/29/25 12:20 01/29/25 14:45 Temperature 99.4 F Pulse Rate 66 65 78 Respiratory Rate 14 14 16 Blood Pressure 110/61 102/60 100/59 L Pulse Oximetry 93 97 95 Oxygen Delivery Me thod Nasal Cannula Nasal Cannula Nasal Cannula Oxygen Flow Rate 3 3 4 01/29/25 14:50 01/29/25 14:55 01/29/25 15:00 Temperature Pulse Rate 75 75 75 Respiratory Rate 16 16 16 Blood Pressure 106/59 L 112/59 L 115/60 Pulse Oximetry 95 96 96 Oxygen Delivery Me thod Nasal Cannula Nasal Cannula Nasal Cannula Oxygen Flow Rate 4 4 4 01/29/25 15:05 01/29/25 15:10 01/29/25 15:15 Temperature 99 F Pulse Rate 75 77 77 Respiratory Rate 16 16 16 Blood Pressure 117/67 113/63 116/67 Pulse Oximetry 95 95 95 Oxygen Delivery Me thod Nasal Cannula Nasal Cannula Nasal Cannula Oxygen Flow Rate 4 4 4 Documenting provider has reviewed patient's vital signs: yes Assessment and Plan Assessment and plan (1) History of arthroplasty of right knee: Problem comment: Right total knee arthroplasty (01/29/2025, Dr. Mast) Status: Acute (2) History of deep vein thrombosis (DVT) of lower extremity: Problem comment: unprovoked, left LE DVT, Dxed 11/2016, on apixaban until 10/02, diagnosed with post-phlebitic of left leg 02/2018, now with unprovoked right LE DVT 02/07, now on life-long apixaban Status: Acute (3) Postoperative hypoxia: Problem comment: After right knee surgery she has had hypoxia requiring supplemental oxygen to maintain sats at 90%. Clinically improving. I suspect this is a combination of sedation from anesthesia and pain medications as well as possible undiagnosed sleep apnea. Does not appear to be asthma/COPD. If she does not wean off oxygen overnight may need further evaluation tomorrow. Consider outpatient sleep study. Status: Acute Plan 74-year-old female admitted to the hospital for right knee replacement. Gener ally doing well except for some hypoxia and knee pain. Will continue to monitor and manage these problems in the hospital. At high risk for recurrent DVT so Eliquis will be resumed in the morning. Total Time Spent Total Time Spent: Total time spent today is 40 minutes in coordination of care, reviewing old records and discussing with patient and other providers ongoing management of knee arthroplasty, hypoxia, thromboembolic risk.
[2025-01-29] MEDS: CEFAZOLIN 1 GM in 0.9 % SODIUM CHLORIDE Mini-bag 100 ML IVPB (19:08)
--- NOTE | 2025-01-29 19:18 | PC.NURSE ---
End of Shift: Patient pleasant and cooperative. Patient vitally stable, lungs clear, BS WNL, IV running LR 75. Right knee dressing C/D/I. Patient rates right knee pain at most 6/10, scheduled tylenol given and 5 mg of oxy x2. Patient tolerating diet, and had one small incontinent urine while ambulating to the toilet. Patient is 1 assist/walker/gb. Patient has fructose intolerance.
[2025-01-29] MEDS: SENNOSIDES 1 TAB TABLET 2 TAB PO (20:27)
[2025-01-29] MEDS: LACTATED RINGERS 1000 ML 1,000 ML 75 ML IV (22:44)
[2025-01-30 03:05] VITALS: BP 103/62; PULSE 70; RESP 16; TEMP 36.4; O2SAT 96
[2025-01-30] MEDS: CEFAZOLIN 1 GM in 0.9 % SODIUM CHLORIDE Mini-bag 100 ML IVPB (03:17)
[2025-01-30] MEDS: ACETAMINOPHEN 500 MG TABLET 1000 MG PO ×2 (05:03→11:18)
[2025-01-30] MEDS: LEVOTHYROXINE 75 MCG TABLET PO (06:03)
[2025-01-30 06:08] LABS: HCO3 VBG 26 mmol/L (21-28); PCO2 VBG 43 mmHG (40-50); PO2 VBG < 30.1 mmHG (25-47); pH VBG 7.393 (7.32-7.43)
--- NOTE | 2025-01-30 06:20 | PC.NURSE ---
Pt is alert and oriented x3. Afebrile. Pt reports 2-4/10 pain in right knee, pain managed with ice pack and scheduled and PRN medications. Pt?s right knee dressing is CDI. Pt is up SBA with walker and gait belt, voiding, and tolerating a regular diet. Pt denies passing gas yet. ?
[2025-01-30 06:26] LABS: Hematocrit 32.3 % (33.0-51.0); Hemoglobin* 10.4 gm/dL (12.0-16.0); Immature Granulocytes Pct Auto 0.3 %; Mean Corpuscular HGB Conc 32 gm/dL (32-36); Mean Corpuscular Hemoglobin 28 pg (26-34); Mean Corpuscular Volume 86 fL (80-100); RDW Coefficient of Variation % 13.6 % (11.5-15.5); Red Blood Count 3.77 m/uL (4.00-5.20); White Blood Count* 11.92 K/uL (4.50-11.00)
[2025-01-30 06:28] LABS: Chloride* 108 mmol/L (96-114); Immature Granulocytes Abs Auto 0.00 K/uL (0.00-0.30); Lymphocytes Absolute Auto 2.00 K/uL (0.90-2.90); Sodium* 139 mmol/L (135-149)
[2025-01-30 06:29] LABS: Potassium* 4.2 mmol/L (3.6-5.1); Slide Review Reflex No
[2025-01-30 06:31] LABS: Blood Urea Nitrogen* 17 mg/dL (7-30); Creatinine* 1.4 mg/dL (0.5-1.5); Est. Creatinine Clearance* 30.76; Estimated Glomerular Filt Rate 39 ml/min
[2025-01-30 06:32] LABS: Anion Gap 5 mEq/L (7-15); Calcium* 9.5 mg/dL (8.4-10.6); Carbon Dioxide* 26 mmol/L (20-32); Glucose* 118 mg/dL (60-115)
[2025-01-30 07:00] VITALS: PULSE 77; PULSE 78; RESP 18; O2SAT 95
[2025-01-30 07:54] VITALS: BP 113/69; PULSE 77; RESP 18; TEMP 36.6; O2SAT 95
[2025-01-30] MEDS: APIXABAN 5 MG TABLET PO (08:10)
[2025-01-30] MEDS: SENNOSIDES 1 TAB TABLET 2 TAB PO (08:10)
--- NOTE | 2025-01-30 08:10 | PM.ORPN ---
Subjective Subjective Time Seen by Provider: 07:15 Date Seen: 01/30/25 Principal diagnosis: Status post right total knee arthroplasty. Interval history: Nina plans to go home with Libra Cintron today. She would like to speak with social services technician. She would like to be discharged by 05 16 or 11, for she has her owner professional engineer coming at noon. Ortho Exam Narrative Exam Narrative: Alert and conversive. Patient is in no acute distress. Converses without labored breathing. Hearing is grossly intact. Ambulates with a walker Examination of the right knee shows the dressing is intact. No erythema or warmth or sign of infection. Mild hematoma. Mild soft tissue edema about the knee. Bilateral calves are soft and nontender. She is able to straight leg raise. CMS intact right lower extremity Const Vital Signs, click to edit/add: Vital Signs - 24 hr 01/29/25 11:35 01/29/25 12:06 01/29/25 12:10 Temperature 98.3 F Pulse Rate 72 78 72 Pulse Rate [Left Pulse Oximeter] Pulse Rate [Right Dorsalis Pedis] Respiratory Rate 16 14 14 Blood Pressure 127/75 113/75 111/65 Blood Pressure [Right Arm] Pulse Oximetry 95 97 92 Oxygen Delivery Method Room Air Nasal Cannula Nasal Cannula Oxygen Flow Rate 2 3 01/29/25 12:15 01/29/25 12:20 01/29/25 14:45 Temperature 99.4 F Pulse Rate 66 65 78 Pulse Rate [Left Pulse Oximeter] Pulse Rate [Right Dorsalis Pedis] Respiratory Rate 14 14 16 Blood Pressure 110/61 102/60 100/59 L Blood Pressure [Right Arm] Pulse Oximetry 93 97 95 Oxygen Delivery Method Nasal Cannula Nasal Cannula Nasal Cannula Oxygen Flow Rate 3 3 4 01/29/25 14:50 01/29/25 14:55 01/29/25 15:00 Temperature Pulse Rate 75 75 75 Pulse Rate [Left Pulse Oximeter] Pulse Rate [Right Dorsalis Pedis] Respiratory Rate 16 16 16 Blood Pressure 106/59 L 112/59 L 115/60 Blood Pressure [Right Arm] Pulse Oximetry 95 96 96 Oxygen Delivery Method Nasal Cannula Nasal Cannula Nasal Cannula Oxygen Flow Rate 4 4 4 01/29/25 15:05 01/29/25 15:10 01/29/25 15:15 Temperature 99 F Pulse Rate 75 77 77 Pulse Rate [Left Pulse Oximeter] Pulse Rate [Right Dorsalis Pedis] Respiratory Rate 16 16 16 Blood Pressure 117/67 113/63 116/67 Blood Pressure [Right Arm] Pulse Oximetry 95 95 95 Oxygen Delivery Method Nasal Cannula Nasal Cannula Nasal Cannula Oxygen Flow Rate 4 4 4 01/29/25 15:33 01/29/25 15:45 01/29/25 16:00 Temperature 97.7 F 97.6 F 97.4 F L Pulse Rate 79 72 75 Pulse Rate [Left Pulse Oximeter] Pulse Rate [Right Dorsalis Pedis] Respiratory Rate 16 16 14 Blood Pressure 120/68 121/67 109/68 Blood Pressure [Right Arm] Pulse Oximetry 90 90 91 Oxygen Delivery Method Room Air Room Air Room Air Oxygen Flow Rate 01/29/25 16:15 01/29/25 16:30 01/29/25 17:00 Temperature 97.6 F 98.6 F 98.3 F Pulse Rate 78 75 87 Pulse Rate [Left Pulse Oximeter] Pulse Rate [Right Dorsalis Pedis] Respiratory Rate 14 12 14 Blood Pressure 92/55 L 92/58 L 112/58 L Blood Pressure [Right Arm] Pulse Oximetry 91 90 92 Oxygen Delivery Method Room Air Room Air Room Air Oxygen Flow Rate 01/29/25 17:30 01/29/25 18:30 01/29/25 19:30 Temperature 98.2 F 98.4 F 97.8 F Pulse Rate 73 77 81 Pulse Rate [Left Pulse Oximeter] Pulse Rate [Right Dorsalis Pedis] Respiratory Rate 14 12 14 Blood Pressure 114/59 L 110/60 97/56 L Blood Pressure [Right Arm] Pulse Oximetry 94 93 94 Oxygen Delivery Method Room Air Room Air Room Air Oxygen Flow Rate 0 01/29/25 20:30 01/29/25 21:38 01/29/25 23:00 Temperature 97.5 F L 97.4 F L Pulse Rate 76 79 Pulse Rate [Left Pulse Oximeter] 78 Pulse Rate [Right Dorsalis Pedis] Respiratory Rate 16 16 Blood Pressure 93/54 L 105/61 Blood Pressure [Right Arm] Pulse Oximetry 93 92 Oxygen Delivery Method Room Air Room Air Oxygen Flow Rate 0 0 01/29/25 23:00 01/29/25 23:30 01/30/25 03:05 Temperature 97.6 F 97.5 F L Pulse Rate 78 70 Pulse Rate [Left Pulse Oximeter] Pulse Rate [Right Dorsalis Pedis] Respiratory Rate 16 16 16 Blood Pressure 102/60 103/62 Blood Pressure [Right Arm] Pulse Oximetry 95 95 96 Oxygen Delivery Method Room Air Room Air Room Air Oxygen Flow Rate 01/30/25 07:54 Temperature 97.8 F Pulse Rate Pulse Rate [Left Pulse Oximeter] Pulse Rate [Right Dorsalis Pedis] 77 Respiratory Rate 18 Blood Pressure Blood Pressure [Right Arm] 113/69 Pulse Oximetry 95 Oxygen Delivery Method Room Air Oxygen Flow Rate Assessment and Plan Assessment and plan (1) Status post right knee replacement: Problem details: 01/29/2025, Dr. Mast Status: Acute Assessment and Plan: Plan for discharge is today to home with Libra Cintron if they meet discharge criteria. DVT prophylaxis includes Eliquis, Compression stockings as needed for swelling. Frequent ambulation, every hour throughout the day. Remove dressing in 1 week. Observe wound and phone Orthopedics with any questions or concerns Return to clinic in 1 week for a wound check Return to clinic in 6 weeks with surgeon Minimize narcotic use. Wean off and discontinue soon as possible. Activities as tolerated. No strenuous activity. Outpatient physical therapy as scheduled. Ice and elevate the operative extremity. No restriction on ice. Tylenol, oxycodone, senna have been sent to her pharmacy. She would like to speak with social services technician to see if she qualifies for home health care. She would like to be out of the hospital by 10 30 or 11:00 a.m. today for her post keeper comes at noon. Staff is aware of this.
--- NOTE | 2025-01-30 11:37 | PC.NURSE ---
Discharge-- Very pleasant and cooperative, alert and oriented patient discharged to home via wheelchair with friend. VSS and pt is afebrile. SPO2 maintained >90% on RA. Pain appears well managed with Tylenol and Oxycodone per MD order. Dressing to right knee is C/D/I and CMS is WNL. LS CTA. She denied nausea and tolerated a regular diet without difficulty. She was up to the chair and BR with assist of 1, belt and walker and tolerated it fairly well. Discharge education was provided including diagnosis info, symptoms to report, medications and follow up plan. No further questions asked. SL was removed with tip intact.
--- NOTE | 2025-01-30 14:08 | PC.SOCIAL ---
Addendum entered by BRANDON Murray 01/30/25 15:08: Discharge planning: Pt is aware of how to get a hold of social science teacher if she has further questions arise. Social work to follow-up as needed. Original Note: Discharge planning: airplane woodworker met with pt and discussed home health care agencies. Pt decided that she wanted to go home with her friend and see how that goes. She will do her exercises at home. Pt does have PT outpatient appointments at the orthopedic clinic scheduled in a few weeks. Social work to follow-up as needed.
== END 2025-01-30 11:15 | disposition home or self-care (01) ==
LOC: OR 10:26 → MEDSURG 15:50
PROVIDERS: Family Medicine; PCP Internal Medicine; Visit Provider Orthopaedic Surgery
PROC: (CPT 27447; principal; 2025-01-29 12:30)
DX: M17.11 Unilateral primary osteoarthritis, right knee (principal); G89.18 Other acute postprocedural pain; R09.02 Hypoxemia; N18.4 Chronic kidney disease, stage 4 (severe); J45.20 Mild intermittent asthma, uncomplicated; Z86.718 Personal history of other venous thrombosis and embolism; Z79.01 Long term (current) use of anticoagulants; R73.03 Prediabetes
CPT/HCPCS: 27447; 01402; 36415; 64447; 64454; 73560; 76942; 80048; 82803; 85025; 97110; 97116; 97161; 97165; 97530; 97535; 99100; A9270; C1776; J0665; J0690; J1100; J1171; J2250; J2405; J2704; J3010; J3490; J7120

== ENCOUNTER 2025-02-21 16:41 | Emergency (ER) | payer MEDICARE, BC, SELFPAY ==
--- OUTSIDE RECORDS SUMMARY | 2025-02-21 16:43 | XMS_ITS | Clinical Summary ---
Author Organization [facility] Address [address] [place] [id number] Care Team Providers Care Merchandising Representative Name Role Phone None Reported, Pcp Primary Care Provider Unavail able Source Comments Patient records contain information from all sites at [facility]. For routine questions regarding patient records, call [phone] during business hours, M-F 8:00 AM - 5:00 PM Central Time. Record requests for emergency care only can be directed to [phone] at any time.[facility] Immunizations Immunization Administration Dates Next Due [...] by your partner or ex-partner? No 03/10/2023 Hunger Vital Sign Answer Date Recorded Within the past 12 months, y ou worried that your food would run out before you got the money to buy more. Never true 03/10/20 23 Within the past 12 months, t he [...] things needed for daily living? No 03/10/2023 Housing Stability Answer Date Recorded What is your living situation today? 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 TREE [employer] Gender Identity Female 03/10/2023 8:01 PM CDT Sexual Orientation Straight 03/10/2023 8: 01 PM CDT Plan of Treatment Health Maintenance Due Date Last Done Comments Hepatitis C Screening 1950 DTaP,Tdap,and Td Vaccines (1 - Tdap) 1967 IPV Vaccines (2 of 3 - Adult catch-up series) 09/20/2017 08/23/2017 COVID-19 Vaccine (2023-2 5 season) 2024 09/06/2023, 04/16/2023, 04/16/2022, Additional history exists Depression Screening (Annual PHQ-2) 07/18/2024 Fall Risk Screen (Annual) 07/18/2024 Influenza Vaccine (#1) 2025 , 04/16/2022, 04/15/2021, Additional history exists Colonoscopy Discontinued 07/15/2004 Colorectal Cancer Screening Discontinued Pneumococcal vaccine (50+ years) Completed 03/09/20 18, 09/29/2016 Zoster Vaccines Completed 07/15/2021, 01/13/2021 RSV vaccine - (32-3 6 weeks) or 60+ years Completed 05/06/2023 CT Colonography Discontinued Cologuard Discontinued FIT Discontinued Insurance MEDICARE [facility] Care Teams Merchandising Representative Relationship Specialty Start Date End Date None Reported, Pcp PCP - General 05/25/24
--- OUTSIDE RECORDS SUMMARY | 2025-02-21 16:43 | XMS_ITS | Clinical Summary ---
Author Organization [facility] Address [address] [place] [id number] Care Team Providers Care Geochemist Name Role Phone Pcp, No Primary Care [...] Health Maintenance Due Date Last Done Comments Tetanus booster 1959 Depression screening for age 12+ 1960 BMI (ht and wt on same day) for age 18+ 1966 Hepatitis C screening for age 18-79 1966 Pneumococcal series for age 50+ (1 of 1 - PCV) 1998 Zoster (shingles) series for age 50+ (1 of 2) 1998 DEXA/DXA scan for age 65+ 2013 Medicare Wellness for age 65+ 2013 RSV vaccine for adults or (1 - 1-dose 75+ series) 2023 COVID-19 vaccine series ( season) 2024 10/16/2021, 04/10/2021, 09/30/2020, Additional history exists Influenza Vaccine (#1) 2025 Hepatitis B series for 19+ Aged Out N o longer eligible based on patient's age to complete this topic Insurance MEDICARE [facility] ONLY Care Teams Geochemist Relationship Specialty Start Date End Date Pcp, No . PCP - General 11/03/21
--- OUTSIDE RECORDS SUMMARY | 2025-02-21 16:43 | XMS_ITS | Clinical Summary ---
Author Organization [facility] Address [address] [address] Care Team Providers Care Odd Jobs Day Worker Name Role Phone Unavailable Primary Care Provider [...] for each transition of care or referral. 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 Gender Identity Not on file Sexual Orientation Not on file Plan of Treatment Health Maintenance Due Date Last Done Comments Hep C Screening (Preventive Services) 1950 Medicare Annual Wellness Visit 1950 DTaP/Tdap/Td Vaccine (1 - Tdap) 1967 Dexa 2013 Pneumococcal Vaccine 50+ Yrs (2 of 2 - PCV) 03/09/2019 03/09/2018 RSV Vaccine (1 - 1-dose 75+ series) 2023 COVID-19 Vaccine (4 - season) 2024 04/10/2021, 09/30/2020, 09/09/2020 Influenza Vaccine (#1) 2025 , 04/10/2020, 05/02/2019, Additional history exists MCV4 Vaccine Aged Out 07/16/2004 No longer eligi ble based on patient's age to complete this topic IPV (Polio) Vaccine Aged Out 08/23/2017 No longe r eligible based on patient's age to complete this topic Zoster/Shingles Vaccine Completed 07/15/2021, 01/13 HepA Vaccine Aged Out No longer eligi ble based on patient's age to complete this topic HepB Vaccine Aged Out No longer eligi ble based on patient's age to complete this topic Hib Vaccine Aged Out No longer eligi ble based on patient's age to complete this topic Meningococcal B Vaccine Aged Out No l onger eligible based on patient's age to complete this topic Insurance * Guarantor: Nina Mix Account Type Relation to Patient Date of Phone Billing Address Personal/Family Self 1950 [id number] [place] [address] MEDICARE [facility]
[2025-02-21 17:03] VITALS: BP 102/69; PULSE 83; RESP 18; TEMP 36.3; O2SAT 97
--- NOTE | 2025-02-21 17:05 | CRLHL7_ITS ---
For Patients: As a result of the Century Cures Act, medical imaging exams and procedure reports are released immediately into your electronic medical record. You may view this report before your referring provider. If you have questions, please contact your health care provider. INDICATION: Swelling. Patient on Eliquis for 1 year. TECHNIQUE: Ultrasound venous duplex lower right extremity. Compression venous exam was performed using albert-scale, color Doppler, and spectral Doppler analysis. COMPARISON: Right lower extremity DVT ultrasound 01/17/2024. FINDINGS: Deep veins: Sonographic imaging demonstrates the right common femoral, deep femoral, superficial femoral, popliteal, and the contralateral left common femoral veins to be fully compressible with normal color Doppler blood flow. There is thrombus within 1 of the 2 posterior tibial veins and 1 of the 2 peroneal veins. Superficial veins: Greater saphenous vein is fully compressible. No popliteal cyst. IMPRESSION: Thrombus within 1 of the 2 posterior tibial veins and 1 of the 2 peroneal veins. These may be chronic thrombi given the prior DVT ultrasound from 01/17/2024 and the patient`s history of Eliquis use for 1 year. However, cannot entirely exclude acute on chronic deep venous thrombosis. Dictated by Cade Eric MD @ 02/21/2025 6:18:01 PM (Electronically Signed)
[2025-02-21] MEDS: ENOXAPARIN 80 MG/0.8 ML INJ SUBCUT (19:06)
--- NOTE | 2025-02-21 19:08 | ED.GENADULT ---
HPI - General Adult General Date Seen: 02/21/25 Chief complaint: Extremity Pain/Injury, Lower Stated complaint: possible blood clot R leg Time Seen by Provider: 02/21/25 18:53 Source: patient Mode of arrival: ambulatory Limitations: no limitations History of Present Illness HPI narrative: Patient is a 74-year-old female presenting for right leg pain. She states she started having pain this morning and thought it was due to her missing an oxycodone dose. She was prescribed oxycodone due to right knee replacement 01/29/2025. She did hold her Eliquis prior to the surgery but restarted it the day of surgery she states. Has not missed any doses since then. Has had previous DVT and that is why she is on Eliquis. This was 1 year ago. Denies any chest pain or shortness of breath. No other concerns noted. Has noted there has been some mild swelling to the right leg but was unsure if it was from the surgery or not. The swelling has been going on for the past week or 2. She has been doing physical therapy. Related Data Home Medications ?Medication ?Instructions ?Recorded ?Confirmed albuterol sulfate 90 mcg/actuation 2 puff inhalation Q4H PRN 06/17/22 02/21/25 aerosol inhaler diclofenac sodium 1 % topical gel 2 g topical QID PRN 07/12/23 02/21/25 (Voltaren Arthritis Pain) Previous Rx's ?Medication ?Instructions ?Recorded apixaban 5 mg tablet 5 mg PO BID #180 tabs 08/07/24 levothyroxine 75 mcg tablet 75 mcg PO DAILY #90 tabs 08/07/24 dicyclomine 10 mg capsule 10 mg PO DAILY abdominal pain #90 12/24/24 caps zolpidem 5 mg tablet 5 mg PO QHS PRN sleep #90 tabs 12/24/24 levocetirizine 5 mg tablet 5 mg PO BID #180 tabs 01/17/25 acetaminophen 500 mg capsule 500 - 1,000 mg (1 - 2 x 500 mg) PO 01/30/25 Q6H PRN pain #100 caps sennosides 8.6 mg tablet (Senna 17.2 mg (2 x 8.6 mg) PO BID PRN 01/30/25 Lax) constipation #100 tabs oxycodone 5 mg tablet 2.5 - 5 mg (0.5 - 1 x 5 mg) PO 02/11/25 Q4-6H PRN Pain #42 tabs enoxaparin 80 mg/0.8 mL 80 mg (0.8 mL) subcut Q12H 14 days 02/21/25 subcutaneous syringe (Lovenox) #22.4 mL Allergies Allergy/AdvReac Type Severity Reaction Status Date / Time cat dander Allergy Intermediate Verified 02/21/25 17:07 dog dander Allergy Intermediate Verified 02/21/25 17:07 house dust Allergy Intermediate Verified 02/21/25 17:07 mold Allergy Intermediate Verified 02/21/25 17:07 pneumococcal vaccine Allergy Intermediate Rash Verified 02/21/25 17:07 pollen extracts Allergy Intermediate Verified 02/21/25 17:07 propylene glycol Allergy Intermediate Verified 02/21/25 17:07 herpes simplex vaccine Allergy Mild Hives Verified 02/21/25 17:07 nickel Allergy Unknown Verified 02/21/25 17:07 poison sumac extract Allergy Verified 02/21/25 17:07 Penicillins AdvReac Severe Hives Verified 02/21/25 17:07 fructose AdvReac Diarrhea, Verified 02/21/25 17:07 abdominal pain goat dander Allergy Intermediate Uncoded 02/06/25 10:51 [facility] Medical History (Updated 02/21/25 @ 19:19 by Tom Ramos DO) History of deep vein thrombosis (DVT) of lower extremity (2016) ?Z86.718 - Personal history of other venous thrombosis and embolism (ICD-10) History of nephrolithiasis ?Z87.442 - Personal history of urinary calculi (ICD-10) History of asthma ?Z87.09 - Personal history of other diseases of the respiratory system (ICD-10) Surgical History History of arthroplasty of right knee (01/29/25) ?Z96.651 - Presence of right artificial knee joint (ICD-10) S/P foot surgery, left ?Z98.890 - Other specified postprocedural states (ICD-10) History of cataract extraction ?Z98.49 - Cataract extraction status, unspecified eye (ICD-10) History of spinal fusion ?Z98.1 - Arthrodesis status (ICD-10) History of appendectomy ?Z90.49 - Acquired absence of other specified parts of digestive tract (ICD-10) History of cholecystectomy ?Z90.49 - Acquired absence of other specified parts of digestive tract (ICD-10) History of tonsillectomy ?Z90.89 - Acquired absence of other organs (ICD-10) Family History Father Prostate cancer Sister Endometrial cancer Social History (Updated 01/29/25 @ 16:18 by Navneet Hill MD) Narrative: She lives alone in a condominium. No stairs. She plans to go home after surgery and her friend, Libra Cintron, will stay with her for 7-10 days. Closest family is her sister, Mimi Mix, who is currently hospitalized for hip fracture in [place]. Mimi his healthcare power of deputy county attorney. Code status is full. former smoker-quit 1977. Rarely drinks alcohol. What is your current living situation?: I presently have a place to live Problems where you live: no known problems In the past 12 months, utilities in danger of being shut off: no In past 12 months, lack of transportation kept you from medical appts, meetings, work, or getting things needed for daily living: no In the past 12 mos, have been you worried that your food would run out before you had money to buy more?: never true In the past 12 mos, the food you bought just didn't last and you didn't have money to buy more?: never true Highest level of school completed/degree received: Professional degree (, [employer], DVM, DDS) Smoking Status: Former smoker What tobacco products do you use: cigarettes Smoking quit date/years: >15 years ago Do you use any of these nicotine containing products: None Second hand tobacco smoke exposure: No How often do you have a drink containing alcohol: monthly or less Alcohol type: wine How often do you have six or more drinks on one occasion: Never AUDIT-C Alcohol total score: 1 Non-prescribed substance use: denies use Caffeine: Yes How often does anyone, including family, friends and others, physically hurt you: decline to answer How often does anyone, including family, friends and others, insult or talk down to you: decline to answer How often does anyone, including family, friends and others, threaten you with harm: decline to answer How often does anyone, including family, friends and others, scream or curse at you: decline to answer service: No Exam Narrative: Exam Narrative: Const: Well-nourished, Well-developed, in no distress Eyes: PERRL, no conjunctival injection, and symmetrical lids HENT: Atraumatic external nose and ears. Moist mucous membranes. CVS: RRR, No murmurs or gallops. Peripheral pulses 2+ and equal in all extremities RESP: Unlabored respiratory effort. Clear to auscultation bilaterally. MSK:Extremities w/o deformity, Normal Active ROM, mild tenderness to right calf Skin: Warm, Dry. No rashes or lesions. Neuro: Normal Muscle tone, No focal neurological deficits. Psych: Awake, Alert, & Oriented x3. Appropriate mood and affect. Const: Vital Signs, click to edit/add: Vital Signs - 24 hr 02/21/25 17:03 02/21/25 19:22 02/21/25 19:24 Temperature 97.4 F L 98.0 F 98.0 F Pulse Rate [Pulse Oximeter] 83 87 87 Respiratory Rate 18 18 18 Blood Pressure [Ri ght Upper Arm] 102/69 112/64 112/64 Pulse Oximetry 97 97 Oxygen Delivery Me thod Room Air Room Air Course Vital Signs Vital signs: Initial Vital Signs Temperature 97.4 F L 02/21/25 17:03 Temperature Source Temporal Artery Scan 02/21/25 17:03 Pulse Rate 83 02/21/25 17:03 Respiratory Rate 18 02/21/25 17:03 Blood Pressure 102/69 02/21/25 17:03 Blood Pressure Mean 80 02/21/25 17:03 Blood Pressure Position Sitting 02/21/25 17:03 Pulse Oximetry 97 02/21/25 17:03 Oxygen Delivery Method Room Air 02/21/25 17:03 Vital Signs Temperature 97.4 F L 02/21/25 17:03 Pulse Rate 83 02/21/25 17:03 Respiratory Rate 18 02/21/25 17:03 Blood Pressure 102/69 02/21/25 17:03 Pulse Oximetry 97 02/21/25 17:03 Oxygen Delivery Method Room Air 02/21/25 17:03 Temperature 98.0 F 02/21/25 19:24 Pulse Rate 87 02/21/25 19:24 Respiratory Rate 18 02/21/25 19:24 Blood Pressure 112/64 02/21/25 19:24 Pulse Oximetry 97 02/21/25 19:22 Oxygen Delivery Method Room Air 02/21/25 19:22 Medications Administered Medications: Discontinued Medications Generic Name Dose Route Start Last Admin Trade Name Kadie PRN Reason Stop Dose Admin Enoxaparin Sodium 80 mg 02/21/25 19:02 02/21/25 19:06 Enoxaparin 80 Mg/0.8 Ml Inj SUBCUT 02/21/25 19:03 80 mg ONCE ONE Administration Medical Decision Making MDM Narrative Medical decision making narrative: Patient is a 74-year-old female presenting for concern a blood clot. Ultrasound was done in triage. Ultrasound returned showing indeterminate if she has an acute clot or chronic clot. She is having no other symptoms other than the mild calf pain. No signs of a PE at this time. Due to the uncertainty of the chronicity I will start her on Lovenox 80 mg b.i.d. and have her follow-up with her primary care provider. She will continue with the Eliquis Imaging Data Venous US: Attestation: I have reviewed the pertinent imaging results. Radiologist's impression: Thrombus within 1 of the 2 posterior tibial veins and 1 of the 2 peroneal veins. These may be chronic thrombi given the prior DVT ultrasound from 01/17/2024 and the patient`s history of Eliquis use for 1 year. However, cannot entirely exclude acute on chronic deep venous thrombosis. Dictated by Cade Eric MD @ 02/21/2025 6:18:01 PM Discharge Plan Discharge Clinical Impression: DVT (deep venous thrombosis) Patient Disposition: Home, Self-Care Condition: Stable Instructions: Enoxaparin (By injection) (Lovenox), Deep Vein Thrombosis (ED) Additional Instructions: Right now he cannot say if this is an acute DVT or not but there is signs of clot in your leg. Concerning you have been taking the Eliquis appropriately I will start you on Lovenox 80 mg twice a day to take until you follow-up with your primary care provider. I recommend calling them tomorrow and let them know what occurred today. The ultrasound was uncertain if your DVT is acute or chronic Prescriptions: New enoxaparin [Lovenox] 80 mg/0.8 mL syringe 80 mg subcut Q12H 14 Days Qty: 22.4 0RF No Action diclofenac sodium [Voltaren Arthritis Pain] 1 % gel 2 g topical QID PRN Rx Instructions: apply to single elbow, wrist or hand; for hand includes palm/fingers/back of hand albuterol sulfate 90 mcg/actuation HFA aerosol inhaler 2 puff inhalation Q4H PRN levothyroxine 75 mcg tablet 75 mcg PO DAILY Qty: 90 3RF apixaban 5 mg tablet 5 mg PO BID Qty: 180 3RF acetaminophen 500 mg capsule 500 - 1,000 mg PO Q6H MDD 4000mg per day PRN (Reason: pain) Qty: 100 0RF sennosides [Senna Lax] 8.6 mg Tablet 17.2 mg PO BID PRN (Reason: constipation) Qty: 100 0RF dicyclomine 10 mg capsule 10 mg PO DAILY Qty: 90 3RF zolpidem 5 mg tablet 5 mg PO QHS PRN (Reason: sleep) Qty: 90 1RF levocetirizine 5 mg tablet 5 mg PO BID Qty: 180 3RF oxycodone 5 mg tablet 2.5 - 5 mg PO Q4-6H MDD 6 tabs per day PRN (Reason: Pain) Qty: 42 0RF Rx Instructions: Minimize. Discontinue as soon as possible Follow Up/Referrals: Marisol Lutz MD [Primary Care Provider, Internal Medicine] [facility] Inst[facility]
[2025-02-21 19:22] VITALS: BP 112/64; PULSE 87; RESP 18; TEMP 36.7; O2SAT 97
[2025-02-21 19:24] VITALS: BP 112/64; PULSE 87; RESP 18; TEMP 36.7
== END 2025-02-21 19:29 | disposition home or self-care (01) ==
PROVIDERS: Emergency Provider Student in an Organized Health Care Education/Training Program; PCP Internal Medicine
DX: I82.501 Chronic embolism and thrombosis of unspecified deep veins of right lower extremity (principal); Z47.1 Aftercare following joint replacement surgery; Z96.651 Presence of right artificial knee joint; Z51.89 Encounter for other specified aftercare
CPT/HCPCS: 93971; 99283; J1650

== ENCOUNTER 2025-03-21 15:00 | Outpatient (RCR) | payer MEDICARE, OTHER, BC, SELFPAY ==
--- NOTE | 2025-02-11 16:47 | PT.OPEX ---
PT [place] Outpatient Eval PT [facility] Outpatient Eval Start: 01/28/25 12:31 Freq: Status: Active Protocol: Document 02/11/25 07:14 MLS (Rec: 02/11/25 16:35 MLS [email or web address]) E-signed By Taisha Dick DPT Physical Therapy Outpatient Evaluation Insurance Information Recert Due Date 05/11/25 Insurance Name Medicare B Medical Diagnosis Z96.651 presence of right artificial knee joint s/p R TKA 01/29/25 Treating Diagnosis Right knee stretching and strengthening Referring MD Dr. Mast Subjective Subjective Patient is a 74 year old female who presents to physical therapy s/p R TKA on 01/29/25. She states that her friend Libra came and stayed with her. She just left on Tuesday. She did stay over one night in the hospital. She reports that she has been doing her exercises about 3 times a day. She states that the pain has been pretty under control, but worse the past couple of days. She is getting a refill and has been taking 3 Oxy per day so far. She does have a ice machine at home. She had her week follow up with Celine already. She is having friends bring her to her appointments. Significant past medical history includes arthritis, DVT and osteoporosis. Patient would like to return to pain free ADLs through physical therapy sessions. Pain Comments Today: 4/10 on a 0-10 pain scale with 10 = extreme pain At its worst: 4/10 At its best: 2/10 Date of Next 03/13/25 Physician Visit Current Work Status Retired Precautions Weight Bearing Weight Bear as Tolerated Status Therapy Limitations/ Not Limited Systems Review Objective Other/Pertinent GAIT/FUNCTIONAL MOBILITY Objective Ambulates full step through with FWW today KNEE ROM Left: WNL Right: Extension/Flexion: -4-100, 0-115 with OP HIP ROM Grossly tested WNL LLE MMT: Hip flexion: R 3+/5 L 4+/5 Hip abduction: R 3+/5 L 4+/5 Hip extension: R /3+5 L 4+/5 Knee flexion: R 3+/5 L 5/5 Knee extension: R 3+/5 L 5/5 Access Code: [email or web address] URL: [email or web address] Date: 02/11/2025 Prepared by: Taisha Dick Exercises - Supine Heel Slide - 3 x daily - 7 x weekly - 10 reps - range of motion exercise type - Supine Single Leg Ankle Pumps - 3-5 x daily - 7 x weekly - 10 reps - edema management exercise type - Supine Quad Sets - 3 x daily - 7 x weekly - 2 sets - 10 reps - 5 seconds hold - strength exercise type - Supine Short Arc Quad - 3 x daily - 7 x weekly - 10 reps - 5 seconds hold - strength exercise type - Active Straight Leg Raise with Quad Set - 3 x daily - 7 x weekly - 10 reps - 2-3 seconds hold - strength exercise type - Supine Heel Slide with Strap - 1 x daily - 7 x weekly - 3 sets - 10 reps - Supine Isometric Hamstring Set - 3 x daily - 7 x weekly - 10 reps - 5 seconds hold - strength exercise type - Seated Long Arc Quad - 3 x daily - 7 x weekly - 10 reps - 5 seconds hold - range of motion/strength exercise type - Seated Knee Flexion Stretch - 3 x daily - 7 x weekly - 10 reps - 5 seconds hold - range of motion/stretch exercise type - Seated Passive Knee Extension - 3 x daily - 7 x weekly - 1 reps - 5-15 minutes hold - range of motion/ stretch exercise type Functional Test 35/80 Performed & Score A score increase of 6 points shows a significant improvement in lower extremity function. Lower Extremity Functional Scale Assessment Assessment/ Pt is a 74 year old female who presents s/p R TKA on . Patient also has notable objective findings including limited ROM, tenderness to palpation, and decreased strength which are also likely contributing to the problem. Patient is a good candidate for skilled therapy to target deficits described above. Skilled PT intervention is necessary for use of therapeutic exercise manual therapy, neuromuscular re-education, gait training, and therapeutic activity. Functional impairments include difficulty with: walking, standing, sleeping, exercising, driving, and ADLS. See appropriate sections of PT eval for complete list of goals and POC. D/C plan and criteria is for pt to achieve the goals as listed below or until max rehab potential is met. Pt was agreeable with plan of care and goals established. Primary Functional standing Limitations walking driving exercising ADLs sleeping Plan of Care Rehabilitation Good Potential Physical Therapy Within 10-12 weeks: Goals 1) Pt will improve knee AROM at least 0 to 120 for improved sit to stand transfers 2) Pt will demonstrate negative extensor lag during straight leg raise exercise with ability to complete at least 15 reps with 5 sec hold to improve strength for ambulation 3) Patient will demonstrate/report ability to walk for 15 minutes w/SPC with pain level <1/10, to allow for community and household ambulation. 4) Pt will be indep with HEP for residential management of pain/symptoms 5) Patient will ascend/descend at least 10 steps using single rail and reciprocal pattern to improve ease of mobility at home/community 7) Patient will demonstrate/report ability to walk for 15 minutes w/o AD with pain level <1/10, to allow for community and household ambulation. Coordination/ Referral Source Communication With Treatment Plan/ Gait Training,Manual Therapy,Neuromuscular Re-ed, Direct Interventions Therapeutic Activities,Therapeutic Exercises Patient Will Be Independently Progressing Discharged From Therapy Evaluation Billing Untimed Code 30 Treatment Minutes Complexity Low Certification Information Provider Signature Yes Required Provider Signature POC & Medical Necessity Shows Agreement With Physician NPI Number Write NPI# Here Physician Comment/ : Change Physician Signature Please Sign/Date Here & Date Requested
== END 2025-05-20 16:26 | disposition home or self-care (01) ==
PROVIDERS: PCP Internal Medicine; Visit Provider Orthopaedic Surgery
DX: Z47.1 Aftercare following joint replacement surgery (principal); Z96.651 Presence of right artificial knee joint; M79.604 Pain in right leg; Z51.89 Encounter for other specified aftercare
CPT/HCPCS: 93971; 97110; 97140; 97161; 99283; J1650